=== PATIENT | female | born 1955 | race African-American/Black ===

== ENCOUNTER 2016-07-25 02:29 | Inpatient (IN) | payer OTHER ==
--- NOTE | 2016-07-12 12:58 | History & Physical Pre-Op ---
General Information and [facility] MD Statement: I have seen and personally examined EMILE WILSON and documented this H&P. The patient is a 61 year old F who presented with a patient stated chief complaint of bilateral low back pain radiating to her right anterior thigh with numbness. Source of Information: patient, old records Exam Limitations: no limitations History of Present Illness: Emile is a 61-year-old female who is complaining of bilateral low back pain radiating to her right anterior thigh with associated numbness. The pain has been going on over the last 3 years or more and has been progressively worsening. She does admit to bilateral knee pain but no significant pain beyond her knee on the right side. She denies any significant left leg pain but has had occasional left leg buckling. Emile states that her symptoms are worse with walking and improved with sitting with classic symptoms of neurogenic claudication. She denies any groin pain. She does feel that she is easily fatigued. She does report a pain level of 5/10 in intensity. She has undergone epidural steroid injections and participated in physical therapy along with taking anti-inflammatory medications, all of which have given her minimal and temporary symptom relief. She denies any bowel or bladder changes. Emile was scheduled for surgery in January,, but the procedure was canceled due to GI symptoms. She was worked up by her case briefer and has gone through treatments which have cleared up her symptoms and have given her clearance for surgery in July. Her MRI scan does show severe spinal stenosis at L3-4 and L4-5 with spondylolisthesis and facet arthrosis, consistent with her symptoms. Given the fact that her pain has failed to respond to conservative measures and she has experienced progressively worsening symptoms, she wants nothing more to do with nonsurgical treatment and has been consented for a posterior lumbar decompression and fusion L3-S1 with instrumentation and iliac crest bone grafting on 07/25/2016. Allergies/Medications Allergies: Coded Allergies: Penicillins (Intermediate, hives 01/13/16) chlorhexidine (From HIBICLENS) (RASH 07/22/16) Home Med list [ASACOL] 400 MG 4 TAB PO BID COLITIS (Reported) Enalapril Maleate 20 MG TABLET 1 TAB PO DAILY BP (Reported) [JANUMET] 100 MG PO D DIABETES (Reported) Prochlorperazine Maleate 5 MG TABLET 1 TAB PO PRN NAUSEA- MOTION SICKNESS ( Reported) Simvastatin (Zocor*) 20 MG TABLET 1 TAB PO QPM CHOLESTEROL (Reported) Compliance With Home Meds: GOOD Past History Medical History Neurological: NONE EENT: NONE Cardiovascular: hypertension, hyperlipidemia Respiratory: NONE Gastrointestinal: colitis, irritable bowel syndrome, ulcerative colitis Hepatic: NONE Renal: NONE Musculoskeletal: chronic back pain, disk herniation, degen joint disease, osteoarthritis (right hip and bilateral knees), sciatica, spinal stenosis Psychiatric: chronic pain disorder Endocrine: diabetes, obesity Blood Disorders: NONE Cancer(s): NONE 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 MOTHER (IDDM). Psychosocial History Where Do You Live? 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 Medication List Current Psychiatric Med(s): Enalapril 20mg daily Zocor 20mg daily Asacol 400mg 4 tabs in the am and 4 tabs in the pm Januvia 100mg daily Exam & Diagnostic Data Physical Exam: Height: 5'2" Weight: 260 lbs. Physical Exam General Appearance Alert, Oriented X3, Cooperative, No Acute Distress Skin No Rashes, No Breakdown, No Significant Lesion HEENT Atraumatic, PERRLA, EOMI, Mucous Membr. moist/pink Neck Supple, No JVD, No thryomegaly, +2 Carotid Pulse wo Bruit Lymphatic Cervical nl Cardiovascular Regular Rate, Normal S1, Normal S2, No Murmurs Lungs Clear to Auscultation, Normal Air Movement Abdomen Normal Bowel Sounds, Soft, No Tenderness, No Hepatospenomegaly, No Masses, GLOBOID Neurological Normal Tone, Sensation Intact, +4/5 RIGHT QUAD STRENGTH, DIFFUSELY DIMINISHED TAISHA. LOWER EXTREMITY REFLEXES, - SLR TAISHA. Extremities No Clubbing, No Cyanosis, No Edema, Normal Pulses Vascular Normal Pulses, Pulses Symmetrical Assessment/Plan Assessment/Plan: Assessment: Severe spinal stenosis, spondylolisthesis, and facet arthrosis at L3 -4 and L4-5. Plan: Emile is scheduled for a posterior lumbar decompression and fusion L3- S1 with instrumentation and iliac crest bone grafting on 07/25/2016. We discussed the procedure in full detail as well as the pre-and postoperative course, follow -up care, and anticipated recovery. We also discussed the discharge instructions. We discussed the risks, alternatives, and benefits. The risks did not exclude , paralysis, infection, bleeding, continued pain, failure of the surgery, need for future surgery, DVT, vascular injury, CSF leak, etc., and given these risks, she still wishes to proceed. We discussed the fact that there is no guarantee for the success or future success of the surgery but that 100% attempt will be made for full recovery. She is scheduled to follow-up with her case briefer and primary care physician to obtain preoperative clearance. She's been advised to continue her Asacol up until and following surgery. Any changes in this patient's plan is based on this patient's outpatient clinical presentation. As Ranked By This Provider Problem List: 1. Non-insulin dependent type 2 diabetes mellitus 2. Hypertension 3. Obesity 4. Hypercholesterolemia Attending MD Review Statement Attending Statement Attending MD Statement: examined this patient, discuss w/resident/PA/HOME CARE PHYSICAL THERAPIST, agreed w/resident/PA/HOME CARE PHYSICAL THERAPIST, reviewed images
[~2016-07-25] VITALS: Ht 157.5 cm; Wt 124.7 kg
[~2016-07-25 02:29] MED LIST: ASACOL PO; ENALAPRIL MALEA20 M1 PO; JANUMET 50-1,01 EACH PO; JANUMET PO; PROCHLORPERAZINE5 M2 PO; ZOCOR20 M1 PO
[2016-07-25 09:40] LABS: ABSOLUTE BASOPHIL COUNT 0 /CUMM (0.0-0.2); ABSOLUTE EOSINOPHIL COUNT 0 /CUMM (0.0-0.7); ABSOLUTE GRANULOCYTE CT 4.9 /CUMM (1.4-6.5); ABSOLUTE LYMPH COUNT 1.2 /CUMM (1.2-3.4); ABSOLUTE MONOCYTE COUNT 0.5 /CUMM (0.10-0.60); BASOPHIL % 0.4 % (0.0-2.0); EOSINOPHIL % 0.6 % (0-5); GRANULOCYTE % 73.2 % (42.2-75.2); HEMATOCRIT 31.7 % (37-47); MEAN CORPUSCULAR HGB CONC 32.1 G/DL (33.0-37.0); MEAN PLATELET VOLUME 8.4 FL (7.4-10.4); PLATELET COUNT 227 /CUMM (130-400); RBC DISTRIBUTION WIDTH 15.4 % (11.5-14.5); RED BLOOD CELL CT 3.92 /CUMM (4.20-5.40); WHITE BLOOD CELL COUNT 6.7 /CUMM (4.8-10.8)
--- NOTE | 2016-07-25 14:16 | Operative Report ---
Operative/Inv Procedure Report Surgery Date: 07/25/16 Name of Procedure: Lumbosacral laminectomies L3 4 4 5 and 51 instrumented pedicle screw fusion L3 4 5 and S1. Neuro lysis L5 nerves bilaterally. Lateral intertransverse process fusion with local facet bone L3 to S1. Use of fluoroscopy. Pre-Operative Diagnosis: Spinal stenosis and spondylolisthesis, L3 4 L4 5 L5-S1 Post-Operative Diagnosis: Same Estimated Blood Loss: 900 Surgeon/Pta: AJAY ACEVEDO,Mary CARDOZA Anesthesia: general endotracheal tube Monitors: Neurological Operative/Procedure Note Note: After adequate general anesthesia was achieved patient log rolled in the prone position. The back was sterilely prepped and draped in the midline and carried down bilaterally over the dorsal elements. The deep retractors were placed. There is severe hypertrophy of the facet joints worse at L4 5 but severe at L3 4 and L5-S1. A large quantity of bone graft was able to be harvested from the enlarged facet joints allowing avoidance of an iliac crest graft. The high- speed bur was then used to create laminectomies and curettes and Kerrisons were used to remove hypertrophied bone and soft tissue at L3 4 L4 5 and L5-S1. There was severe stenosis both medially and laterally at L4 5 and relatively severe stenosis at L3 4 there was foraminal stenosis at L5-S1. The nerve roots were again tension at the L45 level involving the L5 nerve roots and a neuro lysis was performed bilaterally corticotomies were created and the pedicles from L3 to S1 bilaterally doing tapping and probing the ball tip probe was used to identify intracortical position excellent purchase was achieved at all 8 screws from L3 to S1 bilaterally the facet joints were decorticated with the pencil point bur was at all 3 levels. Were contoured and placed within the pedicle screw RECEPTACLE and torqued tightened. Bone graft was laid laterally and over the facet joints. The screws were all checked using the neuro monitoring system and found to be appropriate. The construct was checked in AP and lateral plane and fluoroscopy was used throughout the placement of hardware all levels. After packing of the bone left lateral intertransverse process region from L3 to S1 was irrigated Gelfoam was laid over the laminotomy sites of L3 4 L4 5 and L5-S1 and the wound was closed with absorbable suture and the lumbodorsal fascia and subcutaneous tissue and the skin was closed with reji. The patient was taken the recovery room
[2016-07-25 15:54] LABS: ABSOLUTE BASOPHIL COUNT 0 /CUMM (0.0-0.2); ABSOLUTE EOSINOPHIL COUNT 0 /CUMM (0.0-0.7); ABSOLUTE GRANULOCYTE CT 12.2 /CUMM (1.4-6.5); ABSOLUTE LYMPH COUNT 2.1 /CUMM (1.2-3.4); ABSOLUTE MONOCYTE COUNT 1.5 /CUMM (0.10-0.60); BASOPHIL % 0.2 % (0.0-2.0); EOSINOPHIL % 0.3 % (0-5); GRANULOCYTE % 77.1 % (42.2-75.2); HEMATOCRIT 35.7 % (37-47); MEAN CORPUSCULAR HGB CONC 31.9 G/DL (33.0-37.0); MEAN CORPUSCULAR VOLUME 81.6 FL (81.0-99.0); PLATELET COUNT 217 /CUMM (130-400); RBC DISTRIBUTION WIDTH 15.6 % (11.5-14.5); RED BLOOD CELL CT 4.37 /CUMM (4.20-5.40)
[2016-07-25 16:03] LABS: WHITE BLOOD CELL COUNT 15.9 /CUMM (4.8-10.8)
--- NOTE | 2016-07-25 16:07 | Patient Discharge Instructions ---
Acute Coronary Syndrome Inclusion Criteria At DC or during hospital stay patient has or had the following: ACS DIAGNOSIS No Discharge Core Measures Meds if any: Prescribed or Continued at Discharge Meds if any: NOT Prescribed or Continued at Discharge Congestive Heart Failure Inclusion Criteria At DC or during hospital stay patient has or had the following: CHF DIAGNOSIS No Discharge Core Measures Meds if any: Prescribed or Continued at Discharge Meds if any: NOT Prescribed or Continued at Discharge Cerebrovascular accident Inclusion Criteria At DC or during hospital stay patient has or had the following: CVA/TIA Diagnosis No Discharge Core Measures Meds if any: Prescribed or Continued at Discharge Meds if any: NOT Prescribed or Continued at Discharge Venous thromboembolism Inclusion Criteria VTE Diagnosis No VTE Type NONE VTE Confirmed by (Test) NONE Discharge Core Measures - Per Current guidelines, there needs to be overlap - treatment for the first 5 days of Warfarin therapy. - If discharged on Warfarin prior to 5 days of - overlap therapy, the patient will need to be - assessed for post discharge needs including - *Post discharge parental anticoagulation - *Warfarin and/or parental anticoagulation education - *Follow up date to check INR post discharge At least 5 days overlap therapy as Inpatient No Meds if any: Prescribed or Continued at Discharge Note: Overlap Therapy is Warfarin and Anticoagulant Meds if any: NOT Prescribed or Continued at Discharge
[2016-07-25] MEDS ORDERED: PERCOCET 5-3251 EACH PO (16:13)
--- NOTE | 2016-07-25 16:28 | RADIOLOGY REPORT ---
EXAMINATION: XR LUMBOSACRAL SPINE CLINICAL INFORMATION: L3-S1 fixation in OR COMPARISON: None TECHNIQUE: Fluoroscopic assistance was provided in the operating room to Dr. Gomez. 3 images were saved. Total fluoroscopic time was 2.2 minutes. FINDINGS: Images demonstrate a lumbar spine and AP lateral projections. On the final image there are pedicle screws present at 4 contiguous levels in the spine, although precise levels are difficult to determine on this single view. IMPRESSION: Intraoperative fluoroscopic assistance for L3-S1 fixation.
--- NOTE | 2016-07-25 17:32 | Cons- Medical ---
GANESH BYERS MD 07/25/16 1729: General Information and HPI Consulting Request Date of Consult: 07/25/16 Requested By: SHINE GOMEZ MD Reason for Consult: Medical Management of DM and HTN Source of Information: patient Exam Limitations: no limitations History of Present Illness: Consult was called by the orthopedic surgeon Dr. Gomez, to comanage this patient for her medical comorbidities including diabetes, hypertension and hyperlipidemia. She is a 61 YO f from [facility] with a PMH of HTN, hyperlipidemia, DM, obesity, chronic pain, recently diagnosed ulcerative colitis on Asachol, IBS, osteoarthritis and spinal stenosis at L3, L4 and L4, L5 with spondylolisthesis who presents with bilateral lower back pain radiating to the anterior thigh with numbness 3 years and getting progressively worse. Pain is worse with walking and better with sitting and she experiences buckling. She has gotten multiple epidural steroid injections as well as physical therapy with anti- inflammatory use without relief so she opted for surgical lumbar fusion of L3-S1 with instrumentation and iliac crest bone grafting. Status post surgery and patient is doing well she is pain-free at the moment following administration of pain medication. She had 900 mL blood loss during surgery and had a bag of PRBC transfused in PACU. She also had about 380mls+ of autologous blood transfusion intraoperatively per RN. Hemoglobin preop was 10.2/31.7 and postop 11.2/37.5. Her blood glucose preop was seen and postop was 132. She does not remember her last hemoglobin A1c but says he was done about 2 weeks prior to surgery. She follows with her primary care physician in [facility] Dr. Gonzales. FHx-Father:ASCDDMI; Mother:IDDM Medications include: Asacol 1600 mg twice a day Enalapril 20 mg daily Janumet 100 mg daily Compazine 5 mg tablet when necessary for nausea Zocor 20mg at night Allergies/Medications Allergies: Coded Allergies: Penicillins (Intermediate, hives 01/13/16) chlorhexidine (From HIBICLENS) (RASH 07/22/16) Home Med List: [ASACOL] 400 MG 4 TAB PO BID COLITIS (Reported) Enalapril Maleate 20 MG TABLET 1 TAB PO DAILY BP (Reported) [JANUMET] 100 MG PO D DIABETES (Reported) Oxycodone HCl/Acetaminophen (Percocet 5-325 MG Tablet) 5 MG-325 MG TABLET 2 TAB PO Q4P PRN PAIN SCALE 6-8 1-2 TABS PO Q 4-6 HRS PRN PAIN Prochlorperazine Maleate 5 MG TABLET 1 TAB PO PRN NAUSEA- MOTION SICKNESS ( Reported) Simvastatin (Zocor*) 20 MG TABLET 1 TAB PO QPM CHOLESTEROL (Reported) Current Medications: Current Medications Sig/Sera Start time Last Medication Dose Route Stop Time Status Admin Acetaminophen 650 MG Q4P PRN 07/25 1545 AC PO Acetaminophen 1,000 MG .STK-MED ONE 07/25 07 DC IV 07/25 07 Atorvastatin Calcium 10 MG 1700 07/25 1700 AC PO Bisacodyl 10 MG DAILY NEEDED PRN 07/25 1545 AC SD Clindamycin 600 MG IQ8 07/25 1600 AC Dextrose/Water 50 ML IV 07/26 1629 Clindamycin 600 MG ONCE 07/25 0000 NR Dextrose/Water 50 ML IV 07/25 2359 Dexamethasone 8 MG .STK-MED ONE 07/25 700 DC IM 07/25 07 Docusate Sodium 100 MG TID 07/25 1600 AC PO Fentanyl Citrate 250 MCG .STK-MED ONE 07/25 0659 DC IM 07/25 07 Hydromorphone HCl 2 MG .STK-MED ONE 07/25 700 DC IM 07/25 07 Insulin Aspart 0 AT BEDTIME 07/25 2200 AC SC Insulin Aspart 0 TIDAC 07/25 1700 AC SC Lactated Ringer's 1,000 ML Q10H 07/25 1600 AC IV Lisinopril 20 MG DAILY 07/26 1000 AC PO Magnesium Hydroxide 30 ML AT BEDTIME PRN 07/25 1600 AC PO Midazolam HCl 2 MG .STK-MED ONE 07/25 07 DC IM 07/25 07 Morphine Sulfate 1 MG Q3P PRN 07/25 1545 AC IV Multivitamins 1 TAB DAILY 07/26 1000 AC PO Ondansetron HCl 4 MG Q6P PRN 07/25 1545 AC IV Ondansetron HCl 4 MG .STK-MED ONE 07/25 07 DC IM 07/25 07 Oxycodone/ 1 TAB Q4P PRN 07/25 1545 AC Acetaminophen PO Oxycodone/ 2 TAB Q4P PRN 07/25 1545 AC Acetaminophen PO Remifentanil 2 MG .STK-MED ONE 07/25 0700 DC IV 07/25 0701 Sitagliptin Phosphate 100 MG DAILY 07/26 1000 AC PO Trimethobenzamide HCl 200 MG Q6P PRN 07/25 1545 AC IM Review of Systems Review of Systems Constitutional: Denies: no symptoms. Cardiovascular: Denies: chest pain, palpitations. Respiratory: Denies: cough, short of breath. GI: Denies: constipation, diarrhea, nausea, bloody stool, vomiting. Genitourinary: Denies: dysuria. Musculoskeletal: Denies: joint pain. 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 MOTHER (IDDM). Psychosocial History Where Do You Live? Home Primary Language: Greek Smoking Status: Never Smoked ETOH Use: denies use Illicit Drug Use: denies illicit drug use Other Social History: with 1 son Functional Ability ADLs Independent: dressing, eating, toileting, bathing. Ambulation: independent IADLs Independent: shopping, housework, finances, food prep, telephone, transportation , medication admin. 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 Exam & Diagnostic Data Last 24 Hrs of Vital Signs/I&O Vital Signs Date Time Temp Pulse Resp B/P B/P Pulse O2 O2 Flow FiO2 Mean Ox Delivery Rate 07/27 0610 99.0 94 18 138/56 95 Room Air 07/26 2159 99.2 99 18 140/60 95 Room Air 07/26 1425 98.6 80 20 102/60 97 07/26 0859 76 142/74 07/26 0826 Room Air Room Air 07/26 0825 99.5 76 20 142/74 98 Intake & Output 07/27 0800 06/07 0000 07/26 1600 Intake Total 318 237 4213 Output Total 400 800 850 Balance -160 140 175 Intake, IV 225 Intake, Oral 240 940 800 Output, Urine 400 800 850 Physical Exam General Appearance: obese Eyes: Bilateral: PERRL, EOMI, other (proptosis). Respiratory: chest non-tender, lungs clear Cardiovascular: regular rate/rhythm Peripheral Pulses: 4+ radial (R), 4+ radial (L), 4+ tibialis posterior (R), 4+ tibialis posterior ( L), 4+ dorsalis pedis (R), 4+ dorsalis pedis (L) Gastrointestinal: normal bowel sounds, soft, non-tender Extremities: normal inspection, no edema Skin: intact, normal color Last 24 Hrs of Labs/Robin: Laboratory Tests 07/25/16 1540: CBC w Diff NO MAN DIFF REQ, RBC 4.37, MCV 81.6, MCH 26.0 L, RDW 15.6 H, MPV 8.0, Gran % 77.1 H, Lymphocytes % 13.0 L, Monocytes % 9.4 H, Eosinophils % 0.3, Basophils % 0.2, Absolute Granulocytes 12.2 H, Absolute Lymphocytes 2.1, Absolute Monocytes 1.5 H, Absolute Eosinophils 0, Absolute Basophils 0, PUBS MCHC 31.9 L 07/25/16 0912: CBC w Diff NO MAN DIFF REQ, RBC 3.92 L, MCV 81.0, MCH 26.0 L, RDW 15.4 H, MPV 8.4, Gran % 73.2, Lymphocytes % 18.3 L, Monocytes % 7.5, Eosinophils % 0.6, Basophils % 0.4, Absolute Granulocytes 4.9, Absolute Lymphocytes 1.2, Absolute Monocytes 0.5, Absolute Eosinophils 0, Absolute Basophils 0, PUBS MCHC 32.1 L Assessment/Plan Assessment/Plan 61 YO f with a PMH of HTN, hyperlipidemia, DM, obesity, chronic pain, ulcerative colitis, IBS, osteoarthritis and spinal stenosis at L3, L4 and L4, L5 with spondylolisthesis who presents with bilateral lower back pain radiating to the anterior thigh with numbness 3 years. Consult was called by the orthopedic surgeon Dr. Shnie Gomez, to comanage this patient for her medical comorbidities including diabetes, hypertension and hyperlipidemia etc. Assessment Status post lumbar fusion surgery Type 2 diabetes Elevated WBC count post op-could be reactive Hyperlipidemia HTN Ulcerative colitis Obesity Plan Hold Janumet for now; resume on discharge Start subcutaneous insulin sliding scale-low dose Monitor sugars 3 times a day before meals and at bedtime Resume home dose of enalapril Resume home dose of simvastatin Resume home dose of Asacol Pain control per orthopedic team Bowel regimen as needed Compazine/Zofran when necessary for nausea Repeat CBC in am to evaluate WBC count Incentive Spirometry Check EKG, HbA1C IVF hydration Diabetic diet DVT ppx-Alps Vitals Q shift PT eval for early ambulation Remove Bravo within 24 hrs post-op to reduce risk of infection Other management per orthopedic team We will follow along with you Problem List: 1. Fusion of lumbar spine 2. Non-insulin dependent type 2 diabetes mellitus 3. Hypertension 4. Obesity 5. Hypercholesterolemia Copies To: AJAY ACEVEDO,SHINE Consult Acknowledgment - Thank you for your consult request. GARRY ACEVEDO, [facility] 07/25/161917: Assessment/Plan Consult Acknowledgment - Thank you for your consult request. Attending MD Review Statement Attending Statement Attending MD Statement: examined this patient, discuss w/resident/PA/CARRIER WASHER, agreed w/resident/PA/CARRIER WASHER Attending Assessment/Plan: Agree with above resident note. Briefly, 61 yo morbidly obese F with h/o HTN, T2DM, HLD, recent diagnosis of Crohn's colitis, chronic back pain 2/2 severe spinal stenosis, spondylolisthesis and facet arthrosis L3-4-5-S1, who is s/p lumbosacral laminectomy today by Dr. Gomez. Medical consult being sought for co-management of medical issues. Currently she c/o surgical site pain 7/10 and lightheadedness while trying to ambulate to the bathroom. She denies chest pain, dyspnea or palpitations. Of note, patient was recently diagnosed with Crohn's colitis (Mar 2016) with multiple colonic ulcerations rectosigmoid to cecum on colonoscopy. Biopsy was suggestive of IBD, so she was placed on a 2 week course of Flagyl, prednisone taper and Asacol. She had a repeat colonoscopy (June 2016) which showed resolution of the ulcerations, normal mucosa. She continues to be on Asacol, per her GI doctor, when she returns to [facility], they plan to discontinue the Asacol as this does not seem to be Crohn's instead a manifestion of bowel infection ? infectious colitis. Last normal BM was this morning. VSS. Unremarkable exam, surgical site C/D/I. Labs: Leukocytosis 15.9, H/H 10.2/ 31.7 --> 11.4/35.7, glucose 101, LFTs normal. EKG: SR, Qtc 443. Last A1c is 7.11. 1. Spinal stenosis s/p lumbosacral laminectomy. Pain management per primary team. Please provide incentive spirometry to prevent atelectasis. PT eval. IV fluids, encourage PO intake. 2. Essential hypertension. Borderline BP today 100/50. Resume enalapril from AM. 3. T2DM on Janumet. Accucheks TIDAC, hold janumet while inpatient resume on discharge. Novolog SS for now. 4. Leukocytosis likely reactive. Patient does not have any focal symptoms. 5. Crohn's colitis. Resume asacol. Patient to follow up with her GI doctor on return to [facility]. DVT ppx Alps. Full code.
--- NOTE | 2016-07-25 18:03 | PN- Orthopedic ---
Subjective Subjective: post op check Awake, alert No specific complaints Denies pain or nausea Objective Vital Signs and I&Os VSS, afebrile Physical Exam: Bravo: 350cc General: alert and oriented times three Chest: clear anteriorly bilaterally, RRR Abd: soft Ext: warm, no edema, no calf tenderness Neuro: positive sensate all 4 ext, 5/5 VICKY all 4 ext Assessment/Plan Assessment/Plan 61 yo female s/p lum keane pain management diabetic diet insulin sliding scale perioperatively clindamycin - 4 doses post op Core Measures/Miscellaneous Venous Thromboembolism VTE Risk Factors: Age > 40, Surgery VTE Contraindications: No Contraindications VTE Diagnosis: No Beta Ana Is Beta Ana a Home Med? No Antibiotics Is Patient on Antibiotics? Yes If Yes: prophylaxis
[2016-07-25 20:17] VITALS: BP 110/80; BP 98/46
[2016-07-25 22:26] VITALS: BP 100/50
[2016-07-26 08:25] VITALS: BP 142/74
[2016-07-26 08:37] LABS: ABSOLUTE BASOPHIL COUNT 0 /CUMM (0.0-0.2); ABSOLUTE EOSINOPHIL COUNT 0 /CUMM (0.0-0.7); ABSOLUTE LYMPH COUNT 0.8 /CUMM (1.2-3.4); ABSOLUTE MONOCYTE COUNT 1.1 /CUMM (0.10-0.60); BASOPHIL % 0 % (0.0-2.0); EOSINOPHIL % 0 % (0-5); GRANULOCYTE % 85.6 % (42.2-75.2); HEMATOCRIT 33.2 % (37-47); MEAN CORPUSCULAR HGB 25.8 PG (27.0-31.0); MEAN CORPUSCULAR HGB CONC 32.1 G/DL (33.0-37.0); MEAN CORPUSCULAR VOLUME 80.3 FL (81.0-99.0); MEAN PLATELET VOLUME 9.3 FL (7.4-10.4); PLATELET COUNT 151 /CUMM (130-400); RBC DISTRIBUTION WIDTH 15.4 % (11.5-14.5); RED BLOOD CELL CT 4.13 /CUMM (4.20-5.40); WHITE BLOOD CELL COUNT 12.8 /CUMM (4.8-10.8)
--- NOTE | 2016-07-26 09:40 | PN- Medicine Consult ---
[facility] 07/26/16 0939: Assessment/Plan Assessment/Plan Assessment: 61 YO f with a PMH of HTN, hyperlipidemia, DM, obesity, chronic pain, ulcerative colitis, IBS, osteoarthritis and spinal stenosis at L3, L4 and L4, L5 with spondylolisthesis who presents with bilateral lower back pain radiating to the anterior thigh with numbness 3 years. Consult was called by the orthopedic surgeon Dr. Shine Gomez, to comanage this patient for her medical comorbidities including diabetes, hypertension and hyperlipidemia etc. Assessment Spinal stenosis status post Laminectomy POD1 Type 2 diabetes Elevated WBC count post op-could be reactive Hyperlipidemia HTN Crhons colitis Obesity Plan: Plan Continue to hold Janumet for now; resume on discharge Continue SC insulin sliding scale-low dose Monitor sugars 3 times a day before meals and at bedtime Continue enalapril, simvastatin and Asacol Pain control per orthopedic team Bowel regimen as needed Compazine/Zofran when necessary for nausea Incentive Spirometry Diabetic diet DVT ppx-Alps Vitals Q shift PT eval for early ambulation Other management per orthopedic team We will follow along with you Problem List: 1. Fusion of lumbar spine 2. Hypertension 3. Non-insulin dependent type 2 diabetes mellitus 4. Hypercholesterolemia Subjective Subjective: Patient seen and examined, sitting in the chair, she report back pain, but it's improving She denies chest pain, SOB, no other symptoms No bowel movement yet, good UOP Vitals stable Review of Systems Constitutional: Reports: no symptoms. EENTM: Reports: no symptoms. Cardiovascular: Reports: no symptoms. Respiratory: Reports: no symptoms. Gastrointestinal: Reports: no symptoms. Genitourinary: Reports: no symptoms. Musculoskeletal: Reports: back pain. Skin: Reports: no symptoms. Objective Last 24 Hrs of Vital Signs/I&O Vital Signs Date Time Temp Pulse Resp B/P B/P Pulse O2 O2 Flow FiO2 Mean Ox Delivery Rate 07/27 0759 76 142/74 07/26 08 Room Air Room Air 07/26 824 99.5 76 20 142/74 98 07/26 0000 100 Nasal 2.0L Cannula 07/25 2225 98.5 66 20 100/50 100 Nasal 2.0L Cannula 07/25 2016 98.5 61 16 110/80 94 Nasal Cannula 07/25 1850 Nasal 2.0L Cannula Intake & Output 07/26 1600 06/06 0800 07/26 0000 Intake Total 1380 360 Output Total 1800 800 Balance -420 -440 Intake, IV 900 120 Intake, Oral 480 240 Number 0 0 Bowel Movements Output, Urine 1800 800 Patient 275 lb Weight Physical Exam General Appearance: well developed/nourished, alert, awake, moderate distress Head: atraumatic, normal appearance Cardiovascular: regular rate/rhythm Respiratory: normal breath sounds Abdomen: normal bowel sounds, soft, non-tender Extremities: no edema Current Medications: Current Medications Sig/Sera Start time Last Medication Dose Route Stop Time Status Admin Acetaminophen 1,000 MG Q6H 07/26 1100 AC 07/26 N/A 1 UNIT IV 07/27 0514 1053 Acetaminophen 650 MG Q4P PRN 07/25 1545 DC PO Atorvastatin Calcium 10 MG 1700 07/25 1700 AC PO Bisacodyl 10 MG DAILY NEEDED PRN 07/25 1545 AC NJ Clindamycin 600 MG IQ8 07/25 1600 AC 07/26 Dextrose/Water 50 ML IV 07/26 1629 0753 Clindamycin 600 MG ONCE 07/25 0000 DC Dextrose/Water 50 ML IV 07/25 2359 Docusate Sodium 100 MG TID 07/25 1600 AC 07/26 PO 0858 Hydromorphone HCl 2 MG .STK-MED ONE 07/25 1641 DC IM 07/25 1642 Hydromorphone HCl 2 MG .STK-MED ONE 07/25 1500 DC IM 07/25 1501 Insulin Aspart 0 AT BEDTIME 07/25 2200 AC SC Insulin Aspart 0 TIDAC 07/25 1700 AC 07/26 SC 1204 Lactated Ringer's 1,000 ML Q10H 07/25 1600 AC 07/26 IV 0523 Lisinopril 20 MG DAILY 07/26 1000 AC 07/26 PO 0859 Magnesium Hydroxide 30 ML AT BEDTIME PRN 07/25 1600 AC PO Meperidine HCl 50 MG .STK-MED ONE 07/25 1459 DC IM 07/25 1500 Mesalamine 1,600 MG BID 07/25 2200 AC 07/26 PO 0858 Morphine Sulfate 2 MG Q2-3 HRS NEEDED.. 07/26 1100 AC IV Morphine Sulfate 1 MG Q3P PRN 07/25 1545 DC 07/26 IV 0546 Multivitamins 1 TAB DAILY 07/26 1000 AC 07/26 PO 0859 Ondansetron HCl 4 MG Q6P PRN 07/25 1545 AC 07/25 IV 1941 Oxycodone HCl 5 MG Q4-6 PRN PRN 07/26 1100 AC PO Oxycodone HCl 10 MG Q4-6 PRN PRN 07/26 1100 AC PO Oxycodone HCl 15 MG Q4-6 PRN PRN 07/26 1100 AC PO Oxycodone/ 1 TAB Q4P PRN 07/25 1545 DC Acetaminophen PO Oxycodone/ 2 TAB Q4P PRN 07/25 1545 DC 07/26 Acetaminophen PO 0859 Sitagliptin Phosphate 100 MG DAILY 07/26 1000 CAN PO Trimethobenzamide HCl 200 MG Q6P PRN 07/25 1545 AC IM Results Last 24 Hrs Lab/Robni Results: Laboratory Tests 07/26/16 0721: Hemoglobin A1c 6.8 H, CBC w Diff NO MAN DIFF REQ, RBC 4.13 L, MCV 80.3 L, MCH 25.8 L, RDW 15.4 H, MPV 9.3, Gran % 85.6 H, Lymphocytes % 6.1 L, Monocytes % 8.3, Eosinophils % 0, Basophils % 0 L, Absolute Granulocytes 11.0 H, Absolute Lymphocytes 0.8 L, Absolute Monocytes 1.1 H, Absolute Eosinophils 0, Absolute Basophils 0, PUBS MCHC 32.1 L 07/25/16 1540: CBC w Diff NO MAN DIFF REQ, RBC 4.37, MCV 81.6, MCH 26.0 L, RDW 15.6 H, MPV 8.0, Gran % 77.1 H, Lymphocytes % 13.0 L, Monocytes % 9.4 H, Eosinophils % 0.3, Basophils % 0.2, Absolute Granulocytes 12.2 H, Absolute Lymphocytes 2.1, Absolute Monocytes 1.5 H, Absolute Eosinophils 0, Absolute Basophils 0, PUBS MCHC 31.9 L TOMER STEELE 07/26/16 0953: Attending MD Review Statement Attending Sign Off Attending Cosign Statement: I have: examined this patient, reviewed [facility] EMR data, personally reviewd images, discussd w/resident/PA/DIRECTOR GEOPHYSICAL [employer]ORATORY, discussed mgmt plan w/calvin, discussed mgmt plan w/CM, discussed mgmt plan w/pt, agreed w/resident/PA/DIRECTOR [employer]OP[employer]ORAT[employer], amended to note. Other Findings: ASSESSMENT 1. Spinal stenosis s/o lumbosacral laminectomy. 2. Essential hypertension. 3. T2DM on Janumet. Accucheks TIDAC, hold janumet while inpatient resume on discharge. Novolog SS for now. 4. Leukocytosis likely reactive. 5. Crohn's colitis stable no acute issues PLAN Pain management per primary team. continue incentive spirometry to prevent atelectasis. PT eval. d/c IV fluids, encouraged PO intake. BP 142/72. Resumed bp meds Resumed asacol. f/u GI as o/p DVT ppx Alps. Full code. d/c planning as per surgical team.
[2016-07-26 14:25] VITALS: BP 102/60
--- NOTE | 2016-07-26 14:45 | Surg Short-stay <48hrs Dis Sum ---
Visit Information Visit Dates Admission Date: 07/25/16 Discharge Date: 07/28/16 Surgical Short Stay DC Summary Admission Diagnosis: Spinal stenosis and spondylolisthesis, L3-4 L4-5 L5-S1 Final Diagnosis: same, s/p Lumbosacral laminectomies L3 4 4 5 and 51 instrumented pedicle screw fusion L3 4 5 and S1. Neuro lysis L5 nerves bilaterally. Lateral intertransverse process fusion with local facet bone L3 to S1. Use of fluoroscopy. Procedure(s): Surgery Date: 07/25/16 Name of Procedure: Lumbosacral laminectomies L3 4 4 5 and 51 instrumented pedicle screw fusion L3 4 5 and S1. Neuro lysis L5 nerves bilaterally. Lateral intertransverse process fusion with local facet bone L3 to S1. Use of fluoroscopy. Summary/Significant Findings: Electively scheduled lumbosacral laminectomies L3-4, L4-5, L5-S1 with instrumented fusion by on 07/25/16 for spinal stenosis and spondylolisthesis. Post-op pain control transitioned from iv to oral medications prior to her discharge to home. Condition at Discharge: stable Discharge Disposition: home or self care Discharge instructions provided to patient/family: Yes Post discharge follow-up plan: follow up with as instructed
--- NOTE | 2016-07-26 15:56 | RADIOLOGY REPORT ---
EXAMINATION: XR LUMBAR SPINE CLINICAL INFORMATION: Postoperative lumbar fusion. COMPARISON: Intraoperative fluoroscopic images of lumbar spine, 07/25/2016. TECHNIQUE: Single AP view of the lumbar spine was obtained. FINDINGS: Skin reji project over the midline of the back in this patient who is status post L3-S1 posterior spinal fusion. The posterior fusion rods and transpedicular screws appear intact, but are suboptimally evaluated on this single projection. The lumbar vertebral alignment is anatomic in the coronal plane. IMPRESSION: Status post L3-S1 spinal fusion.
[2016-07-26 21:59] VITALS: BP 140/60
[2016-07-27 07:10] VITALS: BP 138/56
--- NOTE | 2016-07-27 08:22 | PN- Medicine Consult ---
[facility] 07/27/16 0809: Assessment/Plan Assessment/Plan Assessment: 61 YO f with a PMH of HTN, hyperlipidemia, DM, obesity, chronic pain, ulcerative colitis, IBS, osteoarthritis and spinal stenosis at L3, L4 and L4, L5 with spondylolisthesis who presents with bilateral lower back pain radiating to the anterior thigh with numbness 3 years. Consult was called by the orthopedic surgeon Dr. Shine Gomez, to comanage this patient for her medical comorbidities including diabetes, hypertension and hyperlipidemia etc. Assessment * Spinal stenosis status post lumbosacral laminectomy POD2 * Type 2 diabetes mellitus * Elevated WBC count post op-could be reactive * Hyperlipidemia * HTN * Crohns colitis, stable * Obesity Plan: * Last fingersticks 143, 143, 162. Continue NovoLog sliding scale. Resume Janumet on discharge. * Monitor sugars 3 times a day before meals and at bedtime * Continue enalapril, simvastatin and Asacol. Outpatient GI follow-up for Crohn 's. * Pain control per primary team * Bowel regimen as needed * Compazine/Zofran when necessary for nausea * Incentive Spirometry * Diabetic diet * DVT ppx-Alps * PT eval for early ambulation * DC planning per primary team Problem List: 1. Hypertension 2. Obesity 3. Non-insulin dependent type 2 diabetes mellitus 4. Spinal stenosis Subjective Subjective: Patient seen and examined, offers no complaints. Had good sleep overnight. Denies any shortness of breath, chest pain, palpitations, nausea, vomiting, abdominal pain. Vital stable. Blood sugars well controlled. Review of Systems Constitutional: Reports: no symptoms. EENTM: Reports: no symptoms. Cardiovascular: Reports: no symptoms. Respiratory: Reports: no symptoms. Gastrointestinal: Reports: no symptoms. Genitourinary: Reports: no symptoms. Musculoskeletal: Reports: back pain. Skin: Reports: no symptoms. Objective Last 24 Hrs of Vital Signs/I&O Vital Signs Date Time Temp Pulse Resp B/P B/P Pulse O2 O2 Flow FiO2 Mean Ox Delivery Rate 07/27 0710 99.0 94 18 138/56 95 Room Air 07/26 2159 99.2 99 18 140/60 95 Room Air 07/26 1425 98.6 80 20 102/60 97 07/26 0859 76 142/74 07/26 0826 Room Air Room Air 07/26 0825 99.5 76 20 142/74 98 Intake & Output 07/27 1600 07/27 0800 06 0000 Intake Total 240 940 Output Total 400 800 Balance -160 140 Intake, Oral 240 940 Output, Urine 400 800 Physical Exam General Appearance: well developed/nourished, obese Head: atraumatic, normal appearance Ears, Nose, Throat: normal pharynx, normal ENT inspection Neck: normal inspection, supple Cardiovascular: regular rate/rhythm Respiratory: normal breath sounds Abdomen: normal bowel sounds, soft, non-tender Extremities: normal inspection, no edema Current Medications: Current Medications Sig/Sera Start time Last Medication Dose Route Stop Time Status Admin Acetaminophen 1,000 MG Q6H 07/26 1100 DC 07/27 N/A 1 UNIT IV 07/27 0514 0518 Acetaminophen 650 MG Q4P PRN 07/25 1545 DC PO Atorvastatin Calcium 10 MG 1700 07/25 1700 AC 07/26 PO 1632 Bisacodyl 10 MG DAILY NEEDED PRN 07/25 1545 AC IL Clindamycin 600 MG IQ8 07/25 1600 DC 07/26 Dextrose/Water 50 ML IV 07/26 1629 1632 Docusate Sodium 100 MG TID 07/25 1600 AC 07/26 PO 2156 Insulin Aspart 0 AT BEDTIME 07/25 2200 AC SC Insulin Aspart 0 TIDAC 07/25 1700 AC 07/26 SC 1641 Lactated Ringer's 1,000 ML Q10H 07/25 1600 DC 07/26 IV 0523 Lisinopril 20 MG DAILY 07/26 1000 AC 07/26 PO 0859 Magnesium Hydroxide 30 ML AT BEDTIME PRN 07/25 1600 AC PO Mesalamine 1,600 MG BID 07/25 2200 AC 07/26 PO 2156 Morphine Sulfate 2 MG Q2-3 HRS NEEDED.. 07/26 1100 AC IV Morphine Sulfate 1 MG Q3P PRN 07/25 1545 DC 07/26 IV 0546 Multivitamins 1 TAB DAILY 07/26 1000 AC 07/26 PO 0859 Ondansetron HCl 4 MG Q6P PRN 07/25 1545 AC 07/25 IV 1941 Oxycodone HCl 5 MG Q4-6 PRN PRN 07/26 1100 AC PO Oxycodone HCl 10 MG Q4-6 PRN PRN 07/26 1100 AC PO Oxycodone HCl 15 MG Q4-6 PRN PRN 07/26 1100 AC 07/27 PO 0329 Oxycodone/ 1 TAB Q4P PRN 07/25 1545 DC Acetaminophen PO Oxycodone/ 2 TAB Q4P PRN 07/25 1545 DC 07/26 Acetaminophen PO 0859 Trimethobenzamide HCl 200 MG Q6P PRN 07/25 1545 AC IM Results Last 24 Hrs Lab/Robin Results: han STEELETOMER 07/27/16 0923: Attending MD Review Statement Attending Sign Off Attending Cosign Statement: I have: examined this patient, reviewed aval EMR data, personally reviewd images, discussd w/resident/PA/CAMERA MAKER, discussed mgmt plan w/calvin, discussed mgmt plan w/CM, discussed mgmt plan w/pt, agreed w/resident/PA/CAMERA MAKER, amended to note. Other Findings: ASSESSMENT 1. Spinal stenosis s/o lumbosacral laminectomy. 2. Essential hypertension. 3. T2DM on Janumet. Accucheks TIDAC, hold janumet while inpatient resume on discharge. Novolog SS for now. 4. Leukocytosis likely reactive. 5. Crohn's colitis stable no acute issues PLAN Pain management per primary team. continue incentive spirometry to prevent atelectasis. PT eval, encouraged PO intake. BP controlled Resumed asacol. f/u GI as o/p DVT ppx Alps. Full code. d/c planning as per surgical team. sign off.
--- NOTE | 2016-07-27 12:48 | PN- Orthopedic ---
Subjective Subjective: Patient c/o expected postop incisional pain. Less preop pain. Patient c/o feeling "wobbly" in legsd but no weakness. Ambulating with assistance. James. po. No N/V. +appetite. No fever/chills. Voiding without difficulty. + flatus. Review of Systems: Remarkable for the above complaints. Objective Vital Signs and I&Os Vital Signs Date Time Temp Pulse Resp B/P B/P Pulse O2 O2 Flow FiO2 Mean Ox Delivery Rate 07/27 0710 99.0 94 18 138/56 95 Room Air 07/26 2159 99.2 99 18 140/60 95 Room Air 07/26 1425 98.6 80 20 102/60 97 Intake & Output 07/27 1600 07/27 0800 07/27 0000 07/26 1600 07/26 0800 07/26 0000 Intake Total 800 459 5538 1380 360 Output Total 300 400 587 736 9264 800 Balance -300 -160 140 175 -420 -440 Intake, IV 225 900 120 Intake, Oral 240 940 800 480 240 Number 0 0 Bowel Movements Output, Urine 300 400 340 048 2807 800 Patient 275 lb Weight Physical Exam General Appearance: well developed/nourished, alert, awake, moderate distress Head: atraumatic, normal appearance Neck: normal inspection, supple Respiratory: normal breath sounds, no respiratory distress, lungs clear Cardiovascular: regular rate/rhythm Peripheral Pulses: 2+ tibialis posterior (R), 2+ tibialis posterior (L), 2+ dorsalis pedis (R), 2+ dorsalis pedis (L) Abdomen: normal bowel sounds, soft, non-tender, +globoid Back: Incison C/D/I. Dressings changed. No drainage or active bleeding. Extremities: normal inspection, normal capillary refill Neurologic/Psychiatric: no motor/sensory deficits, awake, alert, oriented x 3, Neurovascularly intact without any new or worsening gross motor or sensory loss. Skin: intact, normal color, warm/dry Assessment/Plan Assessment/Plan Assessment: s/p PLDF L3-S1 with Instr. and local bone. Plan: Continue Oxycodone. HLIV. Ambulate with PT. Possible D/C home later today or tomorrow. Do's and Don'ts explained. Disch. Instr. given. Ice prn pain. Problem List: 1. Non-insulin dependent type 2 diabetes mellitus 2. Hypertension 3. Obesity 4. Hypercholesterolemia 5. Fusion of lumbar spine 6. Spinal stenosis Core Measures/Miscellaneous Venous Thromboembolism VTE Risk Factors: Age > 40, Surgery VTE Contraindications: No Contraindications VTE Diagnosis: No Beta Ana Is Beta Ana a Home Med? No Antibiotics Is Patient on Antibiotics? Yes If Yes: prophylaxis Attending MD Review Statement Attending Statement Attending MD Statement: examined this patient, discuss w/resident/PA/FIELD ENUMERATOR, agreed w/resident/PA/FIELD ENUMERATOR
[2016-07-27 14:32] VITALS: BP 110/65
--- NOTE | 2016-07-27 17:00 | NUR ---
NURSING NOTE: PATIENT NOTED TO HAVE TEMPERATURE OF 101.5. SURGICAL PA NOTIFIED. NEW ORDER FOR TYLENOL GIVEN, WILL RE-CHECK AND KEEP EEY ON TEMPS THROUGHOUT SHIFT. IST AT BEDSIDE, PATIENT ENCOURAGED TO USE.
[2016-07-27 22:29] VITALS: BP 110/50
[2016-07-28 06:13] VITALS: BP 112/62
--- NOTE | 2016-07-28 08:04 | PN- Medicine Consult ---
Assessment/Plan Assessment/Plan Assessment: 61 YO f with a PMH of HTN, hyperlipidemia, DM, obesity, chronic pain, ulcerative colitis, IBS, osteoarthritis and spinal stenosis at L3, L4 and L4, L5 with spondylolisthesis who presents with bilateral lower back pain radiating to the anterior thigh with numbness 3 years. Consult was called by the orthopedic surgeon Dr. Shine Gomez, to comanage this patient for her medical comorbidities including diabetes, hypertension and hyperlipidemia etc. Assessment * Spinal stenosis status post lumbosacral laminectomy POD3 * Type 2 diabetes mellitus * Elevated WBC count post op-could be reactive * Hyperlipidemia * HTN * Crohns colitis, stable * Obesity Plan: * Last fingersticks 141, 201, 201. Continue NovoLog sliding scale. Resume Janumet on discharge. * Monitor sugars 3 times a day before meals and at bedtime * Continue enalapril, simvastatin and Asacol. Outpatient GI follow-up for Crohn 's. * Pain control per primary team * Obtain blood cultures for fever. * Bowel regimen as needed * Compazine/Zofran when necessary for nausea * Incentive Spirometry * Diabetic diet * DVT ppx-Alps * PT eval for early ambulation * DC planning per primary team Problem List: 1. Obesity 2. Hypertension 3. Non-insulin dependent type 2 diabetes mellitus 4. Spinal stenosis Subjective Subjective: Patient seen and examined. Off is no complaints. Denies any chest pain, shortness of breath, nausea, vomiting, palpitations, abdominal pain. Vitals are stable. Had a low-grade temp of 100 in a.m. Given Tylenol. Review of Systems Constitutional: Reports: no symptoms. EENTM: Reports: no symptoms. Cardiovascular: Reports: no symptoms. Respiratory: Reports: no symptoms. Gastrointestinal: Reports: no symptoms. Genitourinary: Reports: no symptoms. Musculoskeletal: Reports: back pain. Skin: Reports: no symptoms. Objective Last 24 Hrs of Vital Signs/I&O Vital Signs Date Time Temp Pulse Resp B/P B/P Pulse O2 O2 Flow FiO2 Mean Ox Delivery Rate 07/28 0613 100.0 80 20 112/62 95 07/27 2229 99.8 84 18 110/50 94 Room Air 07/27 1836 99.1 07/27 1813 99.1 07/27 1721 101.5 07/27 1656 101.4 07/27 1432 100.4 91 20 110/65 90 Room Air Intake & Output 07/28 1600 07/28 0800 07/28 0000 Intake Total Output Total 550 300 Balance -550 -300 Output, Urine 550 300 Physical Exam General Appearance: well developed/nourished, obese Head: atraumatic, normal appearance Ears, Nose, Throat: normal pharynx, normal ENT inspection Neck: normal inspection, supple Cardiovascular: regular rate/rhythm Respiratory: normal breath sounds Abdomen: normal bowel sounds, soft, non-tender Extremities: normal inspection, no edema Current Medications: Current Medications Sig/Sera Start time Last Medication Dose Route Stop Time Status Admin Acetaminophen 650 MG Q4P PRN 07/27 1730 AC 07/27 PO 1721 Atorvastatin Calcium 10 MG 1700 07/25 1700 AC 07/27 PO 1721 Bisacodyl 10 MG DAILY NEEDED PRN 07/25 1545 AC NM Docusate Sodium 100 MG TID 07/25 1600 AC 07/27 PO 2114 Insulin Aspart 0 AT BEDTIME 07/25 2200 AC SC Insulin Aspart 0 TIDAC 07/25 1700 AC 07/26 SC 1641 Lisinopril 20 MG DAILY 07/26 1000 AC 07/27 PO 0924 Magnesium Hydroxide 30 ML AT BEDTIME PRN 07/25 1600 AC PO Mesalamine 1,600 MG BID 07/25 2200 AC 07/27 PO 2114 Morphine Sulfate 2 MG Q2-3 HRS NEEDED.. 07/26 1100 AC IV Multivitamins 1 TAB DAILY 07/26 1000 AC 07/27 PO 0924 Ondansetron HCl 4 MG Q6P PRN 07/25 1545 AC 07/25 IV 1941 Oxycodone HCl 5 MG Q4-6 PRN PRN 07/26 1100 AC 07/28 PO 0531 Oxycodone HCl 10 MG Q4-6 PRN PRN 07/26 1100 AC 07/27 PO 0929 Oxycodone HCl 15 MG Q4-6 PRN PRN 07/26 1100 AC 07/27 PO 0329 Patient Medication 1 ED .STK-MED ONE 07/27 1214 [place] Teaching ED 07/27 1215 Trimethobenzamide HCl 200 MG Q6P PRN 07/25 1545 AC IM Results Last 24 Hrs Lab/Robin Results: Laboratory Tests 07/28/16 0712: Sodium Pending, Potassium Pending, Chloride Pending, Carbon Dioxide Pending, Anion Gap Pending, BUN Pending, Creatinine Pending, BUN/Creatinine Ratio Pending , CBC w Diff Pending, WBC Pending, RBC Pending, Hgb Pending, Hct Pending, MCV Pending, MCH Pending, RDW Pending, Plt Count Pending, MPV Pending, PUBS MCHC Pending
[2016-07-28 09:11] LABS: ABSOLUTE BASOPHIL COUNT 0 /CUMM (0.0-0.2); ABSOLUTE EOSINOPHIL COUNT 0 /CUMM (0.0-0.7); ABSOLUTE LYMPH COUNT 1.3 /CUMM (1.2-3.4); ABSOLUTE MONOCYTE COUNT 1.4 /CUMM (0.10-0.60); BASOPHIL % 0.1 % (0.0-2.0); EOSINOPHIL % 0.2 % (0-5); GRANULOCYTE % 79.9 % (42.2-75.2); HEMATOCRIT 29.5 % (37-47); MEAN CORPUSCULAR HGB CONC 32.2 G/DL (33.0-37.0); MEAN CORPUSCULAR VOLUME 80.8 FL (81.0-99.0); MEAN PLATELET VOLUME 8.9 FL (7.4-10.4); PLATELET COUNT 163 /CUMM (130-400); RBC DISTRIBUTION WIDTH 15.1 % (11.5-14.5); RED BLOOD CELL CT 3.65 /CUMM (4.20-5.40); WHITE BLOOD CELL COUNT 13.8 /CUMM (4.8-10.8)
[2016-07-28] MEDS ORDERED: ONE DAILY MULT1 EAC2 PO (10:19)
[2016-07-28] MEDS ORDERED: TYLENOL325 M1 PO (10:20)
[2016-07-28] MEDS ORDERED: MILK OF MA400 MG/52 PO (10:34)
[2016-07-28] MEDS ORDERED: JANUVIA100 M1 PO (10:34)
[2016-07-28] MEDS ORDERED: BISAC-EVAC10 M1 PR (10:34)
[2016-07-28] MEDS ORDERED: DOCUSATE SODIU100 M3 PO (10:34)
[2016-07-28 14:19] VITALS: BP 128/64
--- NOTE | 2016-07-28 14:40 | NUR ---
NURSING NOTE: PT STABLE FOR DISCHARGE PER MD. DR. MOSS AND MAGGIE CURRY AWARE OF TEMPS YESTERDAY AND LOW GRADE TEMP TODAY. PT TO BE DISCHARGED BACK TO [facility] VIA CHAIR CAR. DISCHARGE INSTRUCTIONS GIVEN WITH VERBAL UNDERSTANDING. PT SISTER PICKED UP PRECRIPTIONS FROM PHARMACY.
--- NOTE | 2016-07-28 16:39 | PN- Orthopedic ---
Subjective Subjective: Patient is doing well. No new complaints. No fever/ chills currently. No SOB, calf pain, urinary complaints. Ambulating without difficulty. Stable for discharge. Review of Systems: Remarkable for the above complaints. Objective Vital Signs and I&Os Vital Signs Date Time Temp Pulse Resp B/P B/P Pulse O2 O2 Flow FiO2 Mean Ox Delivery Rate 07/28 1419 99.3 79 20 128/64 95 Room Air 07/28 1011 98.2 07/28 0913 80 114/68 07/28 612 100.0 80 20 112/62 95 /07 2229 99.8 84 18 110/50 94 Room Air 07/27 1836 99.1 07/27 1813 99.1 07/27 1721 101.5 07/27 1656 101.4 Intake & Output 07/28 1600 07/28 0800 07/28 0000 07/27 1600 07/27 0800 07/27 0000 Intake Total 800 900 240 940 Output Total 500 550 300 700 400 800 Balance 300 -550 -300 200 -160 140 Intake, Oral 800 900 240 940 Number 1 Bowel Movements Output, Urine 500 550 300 700 400 800 Physical Exam General Appearance: well developed/nourished, no apparent distress, alert, awake Back: Incision C/D/I. No drainage. Neurologic/Psychiatric: Neurovascularly intact with no new or worsening gross motor or sensory loss. Assessment/Plan Assessment/Plan assessment: S/p PLDF L3-S1 with Instr./local bone Plan: D/C home. D/C IV Continue Percocet. Bowel regimen. Do's /Dont's explained. Disch. Instr. given. Will F/U as outpatient. Problem List: 1. Non-insulin dependent type 2 diabetes mellitus 2. Hypertension 3. Obesity 4. Hypercholesterolemia 5. Fusion of lumbar spine 6. Spinal stenosis Core Measures/Miscellaneous Venous Thromboembolism VTE Risk Factors: Age > 40, Surgery VTE Contraindications: No Contraindications VTE Diagnosis: No Beta Ana Is Beta Ana a Home Med? No Antibiotics Is Patient on Antibiotics? Yes If Yes: prophylaxis Attending MD Review Statement Attending Statement Attending MD Statement: examined this patient, discuss w/resident/PA/MAKEUP INSTRUCTOR, agreed w/resident/PA/MAKEUP INSTRUCTOR
== END 2016-07-28 15:04 | DRG 460 ==
LOC: SDA 02:29 → ENRESERV 16:55 → ENTRNSPT 18:05 → CMPTRNSPT 18:34 → 2NB 18:48 → ENPENDDIS 07-28 10:19 → 2NB 07-28 15:04
PROVIDERS: Nurse Practitioner; Orthopaedic Surgery Orthopaedic Surgery of the Spine; ADMIT Orthopaedic Surgery Orthopaedic Surgery of the Spine
PROC: 0SG307J Fusion of Lumbosacral Joint with Autologous Tissue Substitute, Posterior Approach, Anterior Column, Open Approach (ICD-10-PCS; principal; 2016-07-25)
PROC: 01NB0ZZ Release Lumbar Nerve, Open Approach (ICD-10-PCS; principal; 2016-07-25)
DX: M48.07 Spinal stenosis, lumbosacral region (principal); Z68.43 Body mass index [BMI] 50.0-59.9, adult; I10 Essential (primary) hypertension; E11.9 Type 2 diabetes mellitus without complications; Z79.84 Long term (current) use of oral hypoglycemic drugs; E78.5 Hyperlipidemia, unspecified; K58.9 Irritable bowel syndrome, unspecified; E66.9 Obesity, unspecified; M43.17 Spondylolisthesis, lumbosacral region
CPT/HCPCS: 36415; 72020; 72100; 82436; 87086; 93005; 93010; 97110-GO; 97116-GO; 97161-GP; 97530-GO; C1713; J0131; J1100; J1644; J2405; J3250; J3490; J7120

== ENCOUNTER 2017-02-24 02:54 | Inpatient (IN) | payer OTHER ==
--- NOTE | 2017-02-08 15:19 | History & Physical Pre-Op ---
Mary Esteban 02/08/17 1512: General Information and HPI MD Statement: I have seen and personally examined EMILE WILSON and documented this H&P. The patient is a 61 year old F who presented with a patient stated chief complaint of right sided low back pain which she describes as "darting", with intermittent bilateral anterior thigh pain. Source of Information: patient, old records Exam Limitations: no limitations History of Present Illness: Emile is a 61-year-old female who is status post posterior lumbar decompression fusion L3-S1 with instrumentation and local bone on July 25, 2016. Emile states that approximately 3 months ago, she has had intensified low back pain, predominantly on the right side with intermittent pain in bilateral anterior thighs and into her knees. She describes the pain as "darting". She states it is worse with activity and inhibits her from getting in and out of the tub and bending over without significant discomfort. She is now resorting to using her cane for ambulation which she was not needing postoperatively. She has continued with physical therapy which has been minimally effective. She does use Atasol for pain as needed. Her x-rays suggest the possibility of a non -union. Due to the fact that Emile is having progressively worsening symptoms and has failed to respond to conservative measures, she wants nothing more to do with nonsurgical treatment. She has been scheduled for a revision posterior lumbar decompression and fusion L3-S1 with removal of hardware and possible reinstrumentation with the use of local versus iliac crest bone grafting on 2017. Allergies/Medications Allergies: Coded Allergies: Penicillins (Intermediate, hives 01/13/16) chlorhexidine (From HIBICLENS) (RASH 07/22/16) Home Med list Enalapril Maleate 20 MG TABLET 1 TAB PO DAILY BP (Reported) Mesalamine (Asacol Hd) 800 MG TABLET.DR 400 MG PO BID COLITIS (Reported) Multivitamin (One Daily Multivitamin) 1 EACH TABLET 1 TAB PO DAILY GENERAL HEALTH Sitagliptin Phosphate (Januvia) 100 MG TABLET 100 MG PO DAILY DIABETES Compliance With Home Meds: GOOD Past History Medical History Neurological: NONE EENT: NONE Cardiovascular: hypertension, hyperlipidemia Respiratory: NONE Gastrointestinal: colitis, irritable bowel syndrome, ulcerative colitis Hepatic: NONE Renal: NONE Musculoskeletal: chronic back pain, disk herniation, degen joint disease, osteoarthritis (right hip and bilateral knees), sciatica, spinal stenosis Psychiatric: chronic pain disorder Endocrine: diabetes, obesity Blood Disorders: NONE Cancer(s): NONE HEELER MACHINE/Reproductive: NONE History of MRSA: No History of VRE: No History of CDIFF: No Isolation History: Standard Surgical History Pertinent Surgical History: spinal fusion (s/p PLDF L3-S1 with Instr./loc), s/p colonoscopy x 2 Past Family/Social History Family History Relations & Conditions if any FATHER (ASCVDMI). MOTHER (IDDM). Psychosocial History Where Do You Live? Home Primary Language: Divehi Smoking Status: Never Smoked ETOH Use: denies use Illicit Drug Use: denies illicit drug use Other Social History: with 1 son Functional Ability ADLs Independent: dressing, eating, toileting, bathing. Ambulation: independent IADLs Independent: shopping, housework, finances, food prep, telephone, transportation , medication admin. 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 Exam & Diagnostic Data Last 24 Hrs of Vital Signs/I&O Height: 5'2" Weight: 260lbs. Physical Exam General Appearance Alert, Oriented X3, Cooperative, Mild Distress Skin No Rashes, No Breakdown, No Significant Lesion HEENT Atraumatic, PERRLA, Mucous Membr. moist/pink Neck Supple, No JVD, No thryomegaly, +2 Carotid Pulse wo Bruit Lymphatic Cervical nl Cardiovascular Regular Rate, Normal S1, Normal S2, No Murmurs Lungs Clear to Auscultation, Normal Air Movement Abdomen Normal Bowel Sounds, Soft, No Tenderness, No Masses Neurological Normal Gait, Normal Speech, Strength at 5/5 X4 Ext, Normal Tone, Sensation Intact, Reflexes 2+ Extremities No Clubbing, No Cyanosis, Normal Pulses, LEFT KNEE TENDER TO TOUCH. MILD EDEMA Vascular Normal Pulses Assessment/Plan Assessment/Plan: Assessment: Pseudoarthrosis/Painful Hardware L3-S1 Fusion from 07/25/16. Plan: Emile is scheduled for a revision posterior lumbar decompression and fusion L3-S1 with removal of hardware and possible re-instrumentation using local versus iliac crest bone grafting on 02/24/2017. We discussed the procedure in full detail as well as the pre-and postoperative course, follow-up care, and anticipated recovery. We discussed the postoperative do's and don'ts and discharge instructions. We discussed the benefits, alternatives, and risks, not to exclude, , paralysis, infection, bleeding, continued pain, failure of the surgery, need for future surgery, DVT, vascular injury, CSF leak, etc., and given these risks, she still wishes to proceed. She is scheduled to follow-up with her primary care physician for preoperative clearance. Any changes in this patient's plan is based on this patient's outpatient clinical presentation. As Ranked By This Provider Problem List: 1. Non-insulin dependent type 2 diabetes mellitus 2. Hypertension 3. Obesity 4. Hypercholesterolemia 5. Fusion of lumbar spine 6. Spinal stenosis Copies To: Jason ACEVEDO,Shine Attending MD Review Statement Attending Statement Attending MD Statement: examined this patient, discuss w/resident/PA/ARMHOLE SEWER, agreed w/resident/PA/ARMHOLE SEWER, reviewed images
[~2017-02-24] VITALS: Ht 157.5 cm; Wt 123.4 kg
[~2017-02-24 02:54] MED LIST changes: +ASACOL HD800 M1 PO; +BISAC-EVAC10 M1 PR; +COLACE100 M1 PO; +DOCUSATE SODIU100 M3 PO; +DULCOLAX10 M1 RC; +JANUVIA100 M1 PO; +MILK OF MA400 MG/52 PO; +ONE DAILY MULT1 EAC2 PO; +OS-CAL 500+D31 EAC1 PO; +PERCOCET 5-3251 EACH PO; +TYLENOL EXTRA500 M2 PO; +TYLENOL325 M1 PO; +VITAMIN D31000 UNI2 PO
--- NOTE | 2017-02-24 15:07 | Operative Report ---
Operative/Inv Procedure Report Surgery Date: 02/24/17 Name of Procedure: Lumbosacral inspection of fusion mass removal of segmental pedicle screw hardware L3 to S1 bilaterally. We instrumented L4-S1 with pedicle screws. Laminectomies L4 5 and L5-S1. Interdiscal cage implant placement following discectomy at L5-S1. Lateral intertransverse process bone fusion L3 - S1. Use of fluoroscopy. Neuro lysis left L5 nerve root. Pre-Operative Diagnosis: Nonunion L3 - S1 fusion, loose hardware. Radiculopathy with foraminal stenosis. 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 Anesthesia: general endotracheal tube Monitors: Neuro Operative/Procedure Note Note: After adequate general anesthesia was achieved the patient was placed in the prone position with all bony prominences padded. The back was sterilely prepped and draped. The previous incision was entered sharply and extended slightly superiorly and distally. The dissection was carried bilaterally over the dorsal elements. Hardware was easily identified and inspection of fusion was performed and multiple screws were loose. There was significant bursa tissue over the distal end of the right kelli and both S1 pedicle screws. There was slight looseness at L3, gross looseness at S1, and moderate looseness of L4 and L5. The screws were all easily removed. Laminectomies were performed at L4 5 and L5 -S1 on the left side. There was severe lateral foraminal stenosis from degenerative tissue and disc material compressing the left L5 nerve and a neuro lysis was performed under loupe magnification to free up the compressed nerve which was markedly erythematous. Following the discectomy at L5-S1, the endplates were debrided and the cage implant instruments were used to prepare the disc space for cage placement. A 10 mm trial identified the appropriate size cage. The cage was selected and packed with morselized local cancellus and cortical cancellus bone. The bone was harvested from the sacrum and the lateral masses as well as nonunion bone. The cage was tamped into position and found to be very stable. 8.5mm millimeters screws were placed at L4 bilaterally as well as on the right side at L5. 9-1/2 mm screws were placed on the left side at L5- S1 bilaterally in the sacrum. Compression was applied across the left L5-S1 pedicle screws to secure the cage. The facets were decorticated as well as the lateral masses from L4 laterally and local bone graft was packed laterally from L3 to S1 for intertransverse process fusion. The wound was copiously irrigated. The screws were tested with neuro monitoring and found to be appropriate. Rods were contoured and locked into position after which compression was applied on the left side. Wound was again copiously irrigated. Gelfoam was laid over the laminotomy sites and a closure of the lumbodorsal fashion subcutaneous tissue was performed with absorbable suture and the skin was closed with reji. Covered with sterile dressings the patient was log rolled on to the stretcher stable.
--- NOTE | 2017-02-24 15:42 | RADIOLOGY REPORT ---
EXAMINATION: XR LUMBOSACRAL SPINE CLINICAL INFORMATION: 61-year-old female requiring fluoroscopic imaging in operating room for inspection, hardware removal and laminectomy L3-S1. COMPARISON: 07/26/2016 TECHNIQUE: Intraoperative fluoroscopic imaging of the lumbosacral spine was utilized. Number of saved images: 2 images are submitted into the electronic picture archive. Fluoroscopy time: 0.3 minutes. Dose: 0.246 mGym2 FINDINGS: Please refer to the operative report. Findings include anterolisthesis at L3-L4 and L4-L5, placement of intervertebral fusion device at L5-S1, and well positioned transpedicular screws and posterior fusion rods at L4-S1. IMPRESSION: Fluoroscopic imaging of lumbosacral spine was required within the operating room. Please refer to the operative report.
[2017-02-24] MEDS ORDERED: COLACE100 M1 PO (16:23)
[2017-02-24] MEDS ORDERED: DULCOLAX10 M1 RC (16:23)
[2017-02-24] MEDS ORDERED: TYLENOL EXTRA500 M2 PO (16:23)
[2017-02-24] MEDS ORDERED: MILK OF MA400 MG/52 PO (16:23)
[2017-02-24] MEDS ORDERED: VITAMIN D31000 UNI2 PO (16:23)
[2017-02-24] MEDS ORDERED: PERCOCET 5-3251 EACH PO (16:23)
[2017-02-24] MEDS ORDERED: OS-CAL 500+D31 EAC1 PO (16:23)
--- NOTE | 2017-02-24 17:14 | Cons- Medical ---
Carlos Melo 02/24/17 1713: General Information and HPI Consulting Request Date of Consult: 02/24/17 Requested By: Shine Gomez MD Reason for Consult: POST-OP Source of Information: patient, family, old records History of Present Illness: Ms. Baptiste is a 61-year-old female with a history of hypertension, hyperlipidemia, qrd-tyiucqo-sqphnfsyi diabetes mellitus, osteoarthritis, irritable bowel syndrome [ulcerative colitis] who is status post posterior lumbar decompression fusion L3-S1 with instrumentation and local bone on July 25, 2016. She is S/P (((Lumbosacral inspection of fusion mass removal of segmental pedicle screw hardware L3 to S1 bilaterally. We instrumentation L4-5 and 6 bilateral pedicle screws. Laminectomies L3 4, L4 5, L5-S1. Interdiscal cage implant placement following discectomy L5-S1. Lateral intertransverse process bone fusion L3 S1. Use of fluoroscopy. Neuro lysis left L5 nerve root on 2017)))). The reason for the current surgery is to control her back pain as she reported no significant improvement with the nonsurgical management, also she report worsening back pain with difficulties ambulation and that is what made her to pursue with surgical intervention. P.t report 1 bloody bowel movement prior to OR, also she stated that she had 2 flare up in the 2017 one in Mar and one in Oct that was treated, she report anemia that is due to UC. in the OR charts she lost around 600 cc of blood. On January 2016 patient wants plan to get lumbar decompression but due to projectile diarrhea which contaminated not only the patient but the sterile field. It was also noted that the patient had incontinence of urine prior to the placement of the Bravo catheter the operation was canceled and leather tooler consulted and colonoscopy was done for the patient and she was diagnosed with ulcerative colitis. Allergies/Medications Allergies: Coded Allergies: Penicillins (Intermediate, hives 01/13/16) chlorhexidine (From HIBICLENS) (RASH 07/22/16) Home Med List: Acetaminophen (Tylenol Extra Strength) 500 MG TABLET 1 TAB PO TID PRN TEMP>101 Bisacodyl (Dulcolax) 10 MG SUPP.RECT 1 SUP RC DAILY PRN CONSTIPATION Calcium Carbonate/Vitamin D3 (Os-Harvey 500+D3 Caplet) 500 MG-200 TABLET 1 TAB PO BID BONE HEALTH Cholecalciferol (Vitamin D3) 1,000 UNIT TABLET 1 TAB PO DAILY BONE HEALTH Docusate Sodium (Colace) 100 MG CAPSULE 1 CAP PO BID PRN CONSTIPATION Enalapril Maleate 20 MG TABLET 1 TAB PO DAILY BP (Reported) Magnesium Hydroxide (Milk Of Magnesia) 400 MG/5 ML ORAL.SUSP 5 ML PO Q8P PRN CONSTIPATION Mesalamine (Asacol Hd) 800 MG TABLET.DR 400 MG PO BID COLITIS (Reported) Multivitamin (One Daily Multivitamin) 1 EACH TABLET 1 TAB PO DAILY GENERAL HEALTH Sitagliptin Phosphate (Januvia) 100 MG TABLET 100 MG PO DAILY DIABETES Current Medications: Current Medications Sig/Sera Start time Last Medication Dose Route Stop Time Status Admin Acetaminophen 650 MG Q4P PRN 02/24 1600 UNVr PO Bisacodyl 10 MG DAILY NEEDED PRN 02/24 1600 UNVr SC Calcium 600 MG BID 02/24 2200 UNVr PO Cholecalciferol 1,000 IU DAILY 02/25 1000 UNVr PO Clindamycin 600 MG IQ8 02/25 0000 UNVr Dextrose/Water 50 ML IV 02/25 1629 Clindamycin 600 MG ONCE 02/24 0000 NR IV 02/24 2359 Docusate Sodium 100 MG TID 02/24 1600 UNVr PO Insulin Aspart 0 TIDAC 02/24 1700 UNVr SC Lactated Ringer's 1,000 ML Q10H 02/24 1615 UNVr IV Lisinopril 20 MG DAILY 02/25 1000 UNVr PO Magnesium Hydroxide 30 ML Q8P PRN 02/24 1615 UNVr PO Morphine Sulfate 1 MG Q3P PRN 02/24 1600 UNVr IV Multivitamins 1 TAB DAILY 02/25 1000 UNVr Therapeutic PO Ondansetron HCl 4 MG Q6P PRN 02/24 1600 UNVr IV Oxycodone/ 1 TAB Q4P PRN 02/24 1600 UNVr Acetaminophen PO Oxycodone/ 2 TAB Q4P PRN 02/24 1600 UNVr Acetaminophen PO Sitagliptin Phosphate 100 MG DAILY 02/25 1000 UNVr PO Trimethobenzamide HCl 200 MG Q6P PRN 02/24 1600 UNVr IM Review of Systems Review of Systems Constitutional: Denies: chills, fever, weakness. Cardiovascular: Denies: chest pain, palpitations, peripheral edema. Respiratory: Denies: cough, short of breath, wheezing. GI: Reports: bloody stool. Denies: abdominal pain, diarrhea, nausea, vomiting. Genitourinary: Denies: pain. Musculoskeletal: Reports: back pain. Past History Travel History Traveled to [place] past 21 day No Medical History Neurological: NONE EENT: NONE Cardiovascular: hypertension, hyperlipidemia Respiratory: NONE Gastrointestinal: colitis, irritable bowel syndrome, ulcerative colitis Hepatic: NONE Renal: NONE Musculoskeletal: chronic back pain, disk herniation, degen joint disease, osteoarthritis (right hip and bilateral knees), sciatica, spinal stenosis Psychiatric: chronic pain disorder Endocrine: diabetes, obesity Blood Disorders: NONE Cancer(s): NONE [place]/Reproductive: NONE Surgical History Surgical History: spinal fusion (s/p PLDF L3-S1 with Instr./loc), s/p colonoscopy x 2 Family History Relations & Conditions If Any: FATHER (ASCVDMI at ages 40s). MOTHER (IDDM). Psychosocial History Primary Language: Bulgarian Smoking Status: Unknown If Ever Smoked Functional Ability ADLs Independent: dressing, eating, toileting, bathing. IADLs Independent: shopping, housework, finances, food prep, telephone, transportation , medication admin. Exam & Diagnostic Data Last 24 Hrs of Vital Signs/I&O Vital Signs Date Time Temp Pulse Resp B/P B/P Pulse O2 O2 Flow FiO2 Mean Ox Delivery Rate 02/24 1852 96 Nasal 3.0L Cannula Physical Exam General Appearance: alert, awake, comfortable, obese Head: atraumatic Neck: normal inspection, supple Respiratory: normal breath sounds, chest non-tender, no respiratory distress, lungs clear Cardiovascular: regular rate/rhythm Gastrointestinal: normal bowel sounds, soft, non-tender Extremities: trace left lower extremity edema Last 24 Hrs of Labs/Robin: Laboratory Tests 02/24/17 1800: CBC w Diff NO MAN DIFF REQ, RBC 3.44 L, MCV 81.2, MCH 26.5 L, RDW 16.0 H, MPV 8.7, Gran % 83.7 H, Lymphocytes % 7.6 L, Monocytes % 8.5, Eosinophils % 0.1, Basophils % 0.1, Absolute Granulocytes 11.8 H, Absolute Lymphocytes 1.1 L, Absolute Monocytes 1.2 H, Absolute Eosinophils 0, Absolute Basophils 0, PUBS MCHC 32.7 L Diagnostic Data Other Results EXAMINATION: XR LUMBOSACRAL SPINE CLINICAL INFORMATION: 61-year-old female requiring fluoroscopic imaging in operating room for inspection, hardware removal and laminectomy L3-S1. COMPARISON: 07/26/2016 TECHNIQUE: Intraoperative fluoroscopic imaging of the lumbosacral spine was utilized. Number of saved images: 2 images are submitted into the electronic picture archive. Fluoroscopy time: 0.3 minutes. Dose: 0.246 mGym2 FINDINGS: Please refer to the operative report. Findings include anterolisthesis at L3-L4 and L4-L5, placement of intervertebral fusion device at L5-S1, and well positioned transpedicular screws and posterior fusion rods at L4-S1. IMPRESSION: Fluoroscopic imaging of lumbosacral spine was required within the operating room. Please refer to the operative report. Assessment/Plan Assessment/Plan Ms. Baptiste is a 61-year-old female with a history of hypertension, hyperlipidemia, qfy-datfuzl-eomevbvoc diabetes mellitus, osteoarthritis, irritable bowel syndrome [ulcerative colitis] She is S/P Lumbosacral inspection of fusion mass removal of segmental pedicle screw hardware L3 to S1 bilaterally. We instrumentation L4-5 and 6 bilateral pedicle screws. Laminectomies L3 4, L4 5, L5-S1. Interdiscal cage implant placement following discectomy L5-S1. Lateral intertransverse process bone fusion L3 S1. Use of fluoroscopy. Neuro lysis left L5 nerve root. Most recent hemoglobin A1c = 6.2% Problem list: -Status post lumbar spine surgery. -Leukocytosis-most likely secondary to postop -Acute on Chronic anemia-that could be due to iron deficiency secondary to UC and the acute blood loss. -History of hypertension, hyperlipidemia -History of diabetes mellitus -History of ulcerative colitis Recommendation: -Please hold the patient oral antidiabetic medication -Please start the patient on NovoLog sliding scale, Accu-checks. -As soon as patient can tolerate oral intake please DC IV fluid -Please obtain EKG and chest x-ray in a.m. -If her blood pressure elevated please restart her home medication tonight -Please obtain CBC, basic electrolyte and check in a.m. -Please check iron study to assess the need for iron supplement. -Physical therapy and ambulation as soon as possible -Adjust the patient pain Meds with Tylenol for mild pain, or Percocet for moderate and 2 mg of morphine every 4 as needed for severe pain. -DVT prophylaxis all time Consult Acknowledgment - Thank you for your consult request. Irma Floyd 02/24/172046: Assessment/Plan Consult Acknowledgment - Thank you for your consult request. Attending MD Review Statement Attending Statement Attending MD Statement: examined this patient, discuss w/resident/PA/GRAPE PICKER, agreed w/resident/PA/GRAPE PICKER, reviewed EMR data (avail), reviewed images, amended to note Attending Assessment/Plan: CC: Consult for medical management 61-year-old female, resident of [facility], with past medical history significant for HTN, HLD, DM, osteoarthritis, ulcerative colitis, chronic anemia was admitted for L3-S1 removal of hardware, L3-4, L4-5, L5-S1 laminectomies, fusion. Patient had 5 over long surgery, without any significant hypotension, last approximately 600 mL of blood. Patient is currently asymptomatic and comfortably lying on bed. Just prior to surgery patient had an episode of diarrhea with bloody bowel movement, but has not been having similar symptoms since last few days. Her last flare of ulcerative colitis was in October and before that in March, compliant with his Asacol. Complete physical examination unremarkable, labs show mild drop in H&H as compared to labs done on January 2017, probably secondary to surgery versus GI blood loss. Patient is tolerating by mouth intake. Suggest to continue sliding scale insulin while in hospital, hold oral hypoglycemics, resume all her antihypertensives, watch H&H in a.m., transfusion goal 7 if required. Appreciate consult we will follow along.
[2017-02-24 18:07] VITALS: BP 119/64
[2017-02-24 18:48] LABS: ABSOLUTE BASOPHIL COUNT 0 /CUMM (0.0-0.2); ABSOLUTE EOSINOPHIL COUNT 0 /CUMM (0.0-0.7); ABSOLUTE GRANULOCYTE CT 11.8 /CUMM (1.4-6.5); ABSOLUTE LYMPH COUNT 1.1 /CUMM (1.2-3.4); ABSOLUTE MONOCYTE COUNT 1.2 /CUMM (0.10-0.60); BASOPHIL % 0.1 % (0.0-2.0); EOSINOPHIL % 0.1 % (0-5); HEMATOCRIT 27.9 % (37-47); MEAN CORPUSCULAR HGB 26.5 PG (27.0-31.0); MEAN CORPUSCULAR HGB CONC 32.7 G/DL (33.0-37.0); MEAN CORPUSCULAR VOLUME 81.2 FL (81.0-99.0); MEAN PLATELET VOLUME 8.7 FL (7.4-10.4); PLATELET COUNT 205 /CUMM (130-400); RED BLOOD CELL CT 3.44 /CUMM (4.20-5.40); WHITE BLOOD CELL COUNT 14.1 /CUMM (4.8-10.8)
[2017-02-24 18:49] LABS: GRANULOCYTE % 83.7 % (42.2-75.2)
--- NOTE | 2017-02-24 19:53 | PN- Neurosurgical ---
Subjective Subjective: Pt seen and evaluated for post-op check s/p L3-S1 removal of hardware, L3-4, L4- 5, L5-S1 laminectomies, fusion. Patient doing well on current pain meds and remains HD stable. She has been oob and void appropriatly. Only complains for mild lower back pain at this time. Otherwise, lying comfortably in bed in NAD. Denies CP, SOB, N/V/D, numbness in lower extremitys. No further questions or concerns at this time. Objective Vital Signs and I&Os Vital Signs Date Time Temp Pulse Resp B/P B/P Pulse O2 O2 Flow FiO2 Mean Ox Delivery Rate 02/24 1852 96 Nasal 3.0L Cannula Intake & Output 02/24 0802/24 0000 02/23 1600 02/23 0802/23 0000 Intake Total Output Total Balance Patient 274 lb Weight Physical Exam: General: obese female laying supine in bed, answer questions without difficulty, NAD Cardiac: RRR, s1s2 Pulm: CTA in anterior/lateral hernandez abdomen: soft, nt/nd, bs+ Neuro: AAOx3, cn 2-12 intact, 5/5 muscle strength in b/l lower extremity in all muscle groups, sensation intact globally in b/l le Current Medications: Current Medications Sig/Sera Start time Last Medication Dose Route Stop Time Status Admin Acetaminophen 650 MG Q4P PRN 02/24 1600 AC PO Acetaminophen 1,000 MG .STK-MED ONE 02/24 1115 DC IV 02/24 1116 Bisacodyl 10 MG DAILY NEEDED PRN 02/24 1600 AC DE Calcium 600 MG BID 02/24 2200 AC PO Cholecalciferol 1,000 IU DAILY 02/25 1000 AC PO Clindamycin 600 MG IQ8 02/25 0000 AC Dextrose/Water 50 ML IV 02/25 1629 Clindamycin 600 MG ONCE 02/24 0000 NR IV 02/24 2359 Docusate Sodium 100 MG TID 02/24 1600 AC PO Fentanyl Citrate 250 MCG .STK-MED ONE 02/24 1114 DC IM 02/24 1115 Insulin Aspart 0 TIDAC 02/24 1700 AC SC Lactated Ringer's 1,000 ML Q10H 02/24 1615 AC 02/24 IV 1909 Lisinopril 20 MG DAILY 02/25 1000 AC PO Magnesium Hydroxide 30 ML Q8P PRN 02/24 1615 AC PO Midazolam HCl 2 MG .STK-MED ONE 02/24 1115 DC IM 02/24 1116 Morphine Sulfate 1 MG Q3P PRN 02/24 1600 AC IV Multivitamins 1 TAB DAILY 02/25 1000 AC Therapeutic PO Ondansetron HCl 4 MG Q6P PRN 02/24 1600 AC IV Oxycodone/ 1 TAB Q4P PRN 02/24 1600 AC Acetaminophen PO Oxycodone/ 2 TAB Q4P PRN 02/24 1600 AC Acetaminophen PO Remifentanil 3 MG .STK-MED ONE 02/24 1116 DC IV 02/24 1117 Sitagliptin Phosphate 100 MG DAILY 02/25 1000 CAN PO Trimethobenzamide HCl 200 MG Q6P PRN 02/24 1600 AC IM Results Last 48 Hours of Labs: Laboratory Tests 02/24 1800 Hematology CBC w Diff NO MAN DIFF REQ WBC (4.8 - 10.8 /CUMM) 14.1 H RBC (4.20 - 5.40 /CUMM) 3.44 L Hgb (12.0 - 16.0 G/DL) 9.1 L Hct (37 - 47 %) 27.9 L MCV (81.0 - 99.0 FL) 81.2 MCH (27.0 - 31.0 PG) 26.5 L RDW (11.5 - 14.5 %) 16.0 H Plt Count (130 - 400 /CUMM) 205 MPV (7.4 - 10.4 FL) 8.7 Gran % (42.2 - 75.2 %) 83.7 H Lymphocytes % (20.5 - 51.1 %) 7.6 L Monocytes % (1.7 - 9.3 %) 8.5 Eosinophils % (0 - 5 %) 0.1 Basophils % (0.0 - 2.0 %) 0.1 Absolute Granulocytes (1.4 - 6.5 /CUMM) 11.8 H Absolute Lymphocytes (1.2 - 3.4 /CUMM) 1.1 L Absolute Monocytes (0.10 - 0.60 /CUMM) 1.2 H Absolute Eosinophils (0.0 - 0.7 /CUMM) 0 Absolute Basophils (0.0 - 0.2 /CUMM) 0 PUBS MCHC (33.0 - 37.0 G/DL) 32.7 L Assessment/Plan Assessment/Plan This is a 61 y/o F w/ PMHx of HTN, DM, and chronic back pain s/p posterior lumbar decompression fusion L3-S1 with instrumentation and local bone on July 25, 2016 who is now POD#0 L3-S1 removal of hardware, L3-4, L4-5, L5-S1 laminectomies , fusion. She remains HD stable and pain controlled. -continue current pain meds -continue post-op abx -Continue home cardiac meds -novalog Sliding scale, cbgs -zofran/tigan prn n/v -monitor i+os -DM diet -labs ordered for tomorrow A.m. -PT Core Measures Venous Thromboembolism VTE Risk Factors Surgery No Mechanical VTE Prophylaxis d/t N/A MechProphylax Ordered No VTE Pharm Prophylaxis d/t Surgical Contraindication
[2017-02-24 22:23] VITALS: BP 118/70
[2017-02-25 06:35] VITALS: BP 96/60
[2017-02-25 08:29] LABS: ABSOLUTE BASOPHIL COUNT 0 /CUMM (0.0-0.2); ABSOLUTE EOSINOPHIL COUNT 0 /CUMM (0.0-0.7); ABSOLUTE GRANULOCYTE CT 10.4 /CUMM (1.4-6.5); ABSOLUTE MONOCYTE COUNT 1.1 /CUMM (0.10-0.60); BASOPHIL % 0 % (0.0-2.0); EOSINOPHIL % 0 % (0-5); GRANULOCYTE % 83.5 % (42.2-75.2); HEMATOCRIT 26.6 % (37-47); MEAN CORPUSCULAR HGB 26.3 PG (27.0-31.0); MEAN CORPUSCULAR HGB CONC 32.4 G/DL (33.0-37.0); MEAN CORPUSCULAR VOLUME 81.2 FL (81.0-99.0); MEAN PLATELET VOLUME 8.5 FL (7.4-10.4); PLATELET COUNT 239 /CUMM (130-400); RBC DISTRIBUTION WIDTH 16.2 % (11.5-14.5); RED BLOOD CELL CT 3.27 /CUMM (4.20-5.40); WHITE BLOOD CELL COUNT 12.5 /CUMM (4.8-10.8)
--- NOTE | 2017-02-25 11:58 | PN- Att Addend ---
Attending Addendum Attending Brief Note S: The patient noted a small amount of blood in BM- requesting her Asacol to be restarted. Otherwise feeling well. O: VS: Vital Signs Date Time Temp Pulse Resp B/P B/P Pulse O2 O2 Flow FiO2 Mean Ox Delivery Rate 02/25 1407 98.6 83 18 120/64 97 Nasal 1.0L Cannula Intake & Output 02/25 1600 Intake Total 1270 Output Total 200 Balance 1070 Intake, IV 820 Intake, Oral 450 Output, Urine 200 Current Medications Sig/Sera Start time Last Medication Dose Route Stop Time Status Admin Acetaminophen 650 MG Q4P PRN 02/24 1600 AC PO Bisacodyl 10 MG DAILY NEEDED PRN 02/24 1600 AC LA Calcium 600 MG BID 02/24 2200 AC 02/25 PO 0834 Cholecalciferol 1,000 IU DAILY 02/25 1000 AC 02/25 PO 0834 Clindamycin 600 MG IQ8 02/25 0000 DC 02/25 Dextrose/Water 50 ML IV 02/25 1629 1617 Clindamycin 600 MG ONCE 02/24 0000 DC IV 02/24 2359 Docusate Sodium 100 MG TID 02/24 1600 AC 02/25 PO 1617 Insulin Aspart 0 TIDAC 02/24 1700 AC 02/25 SC 1715 Lactated Ringer's 1,000 ML Q10H 02/24 1615 DC 02/25 IV 1234 Lisinopril 20 MG DAILY 02/25 1000 AC 02/25 PO 0834 Magnesium Hydroxide 30 ML Q8P PRN 02/24 1615 AC PO Mesalamine 400 MG BID 02/25 1159 AC 02/25 PO 1431 Morphine Sulfate 1 MG Q3P PRN 02/24 1600 AC IV Multivitamins 1 TAB DAILY 02/25 1000 AC 02/25 Therapeutic PO 0834 Ondansetron HCl 4 MG Q6P PRN 02/24 1600 AC IV Oxycodone/ 1 TAB Q4P PRN 02/24 1600 AC Acetaminophen PO Oxycodone/ 2 TAB Q4P PRN 02/24 1600 AC 02/25 Acetaminophen PO 1714 Trimethobenzamide HCl 200 MG Q6P PRN 02/24 1600 AC IM Labs: Laboratory Tests 02/25/17 0730: Anion Gap 10, Estimated GFR > 60, BUN/Creatinine Ratio 14.3, CBC w Diff MAN DIFF ORDERED, RBC 3.27 L, MCV 81.2, MCH 26.3 L, RDW 16.2 H, MPV 8.5, Gran % 83.5 H, Lymphocytes % 7.8 L, Monocytes % 8.7, Eosinophils % 0, Basophils % 0, Absolute Granulocytes 10.4 H, Absolute Lymphocytes 1.0 L, Absolute Monocytes 1.1 H, Absolute Eosinophils 0, Absolute Basophils 0, Platelet Estimate VERIFIED BY SMEAR, Polychromasia 1+, Poikilocytosis 1+, Anisocytosis 1+, Ovalocytes 1+, PUBS MCHC 32.4 L 02/24/17 1800: CBC w Diff NO MAN DIFF REQ, RBC 3.44 L, MCV 81.2, MCH 26.5 L, RDW 16.0 H, MPV 8.7, Gran % 83.7 H, Lymphocytes % 7.6 L, Monocytes % 8.5, Eosinophils % 0.1, Basophils % 0.1, Absolute Granulocytes 11.8 H, Absolute Lymphocytes 1.1 L, Absolute Monocytes 1.2 H, Absolute Eosinophils 0, Absolute Basophils 0, PUBS MCHC 32.7 L Impression/Plan: #S/P Lumbar Surgery- doing well. Plan: As per surgery. #Acute Blood Loss Anemia- ? due to surgery and some blood loss via GI (h/o ulcerative colitis). Plan: Continue to follow H/H in morning. #Ulcerative Colitis- patient requesting Asacol to be restarted. Plan: Restart Asacol bid (will verify with surgery if OK). #DM2- blood sugars stable. Plan: Will continue to follow on insulin and resume oral agents upon discharge.
[2017-02-25 14:07] VITALS: BP 120/64
--- NOTE | 2017-02-25 15:26 | PN- Orthopedic ---
Subjective Subjective: Patient c/o expected postop incisional pain. No preop pain. No leg pain. James. po. Ambulating with PT. No N/V. No fever/chills. Review of Systems: Remarkable for the above complaints. Objective Vital Signs and I&Os Vital Signs Date Time Temp Pulse Resp B/P B/P Pulse O2 O2 Flow FiO2 Mean Ox Delivery Rate 02/25 1407 98.6 83 18 120/64 97 Nasal 1.0L Cannula 02/25 1054 Room Air 02/25 0834 100/68 02/25 0800 98 Nasal 2.0L Cannula 02/25 0635 98.6 76 20 96/60 99 Nasal Cannula 02/25 0000 97 Nasal 2.0L Cannula 02/24 2223 97.5 68 20 118/70 97 02/24 1852 96 Nasal 3.0L Cannula 02/24 1807 98.1 74 18 119/64 96 Nasal 2.0L Cannula Intake & Output 02/25 1600 02/25 0800 02/25 0000 02/24 1600 02/24 0800 02/24 0000 Intake Total 1270 900 880 Output Total 047 971 9724 Balance 1070 600 -320 Intake, IV 820 800 400 Intake, Oral 450 100 480 Number 0 Bowel Movements Output, Urine 974 327 6543 Patient 272 lb Weight Physical Exam General Appearance: well developed/nourished, no apparent distress, alert, awake Respiratory: normal breath sounds, no respiratory distress Cardiovascular: regular rate/rhythm Abdomen: normal bowel sounds, soft, non-tender Back: Incision C/D/I. Dressing changed. Extremities: Neurovascularly intact with no new or worsening gross motor or sensory loss. Skin: intact, normal color, warm/dry Assessment/Plan Assessment/Plan Assessment: s/p PLDF L4-S1 with Instr./L3-S1 with local bone Plan: Ambulate with PT Continue Percocet Ice to knee and incision prn Possible D/C in am tomorrow Recheck CBC in am Problem List: 1. Hypertension 2. Non-insulin dependent type 2 diabetes mellitus 3. Obesity 4. Hypercholesterolemia 5. Fusion of lumbar spine 6. 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
[2017-02-25 22:20] VITALS: BP 122/60
[2017-02-26 02:00] VITALS: BP 118/66
[2017-02-26 06:33] VITALS: BP 100/52
--- NOTE | 2017-02-26 07:07 | Surgical Discharge Summary ---
Visit Information Visit Dates Admission Date: 02/24/17 Discharge Date: 02/26/2017 History of Present Illness Chief Complaint: Back Pain. Nonunion L3 S1 fusion loose hardware. Radiculopathy with foraminal stenosis. 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 MOTHER (IDDM). Psychosocial History Where Do You Live? Home Who Do You Live With? Patient/Self What is Your Primary Language? Kazakh Review of Systems: See H&P Hospital Course Course Attending Physician: Jason ACEVEDO,Shine Primary Care Physician: Unknown Hospital Course: Patient is a 61-year-old female who is status post posterior lumbar decompression fusion L3-S1 with instrumentation and local bone on July 25, 2016. She had recurring symptoms and was unable to ambulate independently. Her x-rays suggest the possibility of a non-union. Due to the fact that Emile is having progressively worsening symptoms and has failed to respond to conservative measures, she wants nothing more to do with nonsurgical treatment. On 02/24/2017, patient underwent intraoperative intervention which included: Lumbosacral inspection of fusion mass removal of segmental pedicle screw hardware L3 to S1 bilaterally. We instrumentation L45 and 6 bilateral pedicle screws. Laminectomies L3 4, L4 5, L5-S1. Interdiscal cage implant placement following discectomy L5-S1. Lateral intertransverse process bone fusion L3 S1. Use of fluoroscopy. Neuro lysis left L5 nerve root. She tolerated the procedure well, ambulated with physical therapy, tolerated a regular diet, and was subsequently cleared for discharge. Discharge order was placed on 02/26/2017 per Mary SERRANO instructions Complications: None Allergies: Coded Allergies: Penicillins (Intermediate, hives 01/13/16) chlorhexidine (From HIBICLENS) (RASH 07/22/16) Significant Procedures: 02/24/2017 patient underwent: Lumbosacral inspection of fusion mass removal of segmental pedicle screw hardware L3 to S1 bilaterally. We instrumentation L45 and 6 bilateral pedicle screws. Laminectomies L3 4, L4 5, L5-S1. Interdiscal cage implant placement following discectomy L5-S1. Lateral intertransverse process bone fusion L3 S1. Use of fluoroscopy. Neuro lysis left L5 nerve root. Disposition Summary Disposition Principal Diagnosis: Nonunion L3 S1 fusion loose hardware. Radiculopathy with foraminal stenosis. Additional Diagnosis: Nonunion L3 4 [id number] disc herniation and lateral foraminal stenosis left L5-S1 Discharge Disposition: home or self care Discharge Instructions General Discharge Information Code Status: Full Code Patient's Diet: Regular Patient's Activity: See attached instructions from Dr. Gomez Follow-Up Instructions/Appts: See attached instructions from Dr. Gomez Medications at Discharge Discharge Medications: Continue taking these medications: Enalapril Maleate (Enalapril Maleate) 20 MG TABLET 1 Tablet ORAL DAILY Comments: Last Taken: 07/28/16 Time: 9:15 AM Sitagliptin Phosphate (Januvia) 100 MG TABLET 100 Milligram ORAL DAILY Qty = 30 Comments: NOT GIVEN IN HOSPTIAL Multivitamin (One Daily Multivitamin) 1 EACH TABLET 1 Tablet ORAL DAILY Qty = 30 Comments: Last Taken: 07/28/16 Time: 9:15 AM Mesalamine (Asacol Hd) 800 MG TABLET. 400 Milligram ORAL TWICE DAILY Start taking the following new medications: Acetaminophen (Tylenol Extra Strength) 500 MG TABLET 1 Tablet ORAL THREE TIMES DAILY as needed for TEMP>101 Qty = 90 No Refills Bisacodyl (Dulcolax) 10 MG SUPP.RECT 1 Suppository RECTAL DAILY as needed for CONSTIPATION Qty = 10 No Refills Calcium Carbonate/Vitamin D3 (Os-Harvey 500+D3 Caplet) 500 MG-200 TABLET 1 Tablet ORAL TWICE DAILY Qty = 60 No Refills Cholecalciferol (Vitamin D3) 1,000 UNIT TABLET 1 Tablet ORAL DAILY Qty = 30 No Refills Docusate Sodium (Colace) 100 MG CAPSULE 1 Capsule ORAL TWICE DAILY as needed for CONSTIPATION Qty = 60 No Refills Magnesium Hydroxide (Milk Of Magnesia) 400 MG/5 ML ORAL.SUSP 5 Milliliters ORAL EVERY 8 HOURS NEEDED as needed for CONSTIPATION Qty = 300 No Refills Oxycodone HCl/Acetaminophen (Percocet 5-325 MG Tablet) 5 MG-325 MG TABLET 1-2 Tablet ORAL EVERY 4-6 HOURS as needed for PAIN Qty = 90 No Refills
[2017-02-26 09:19] VITALS: BP 108/60
[2017-02-26 09:32] LABS: ABSOLUTE BASOPHIL COUNT 0 /CUMM (0.0-0.2); ABSOLUTE EOSINOPHIL COUNT 0 /CUMM (0.0-0.7); ABSOLUTE GRANULOCYTE CT 8.6 /CUMM (1.4-6.5); ABSOLUTE LYMPH COUNT 1.7 /CUMM (1.2-3.4); ABSOLUTE MONOCYTE COUNT 1.4 /CUMM (0.10-0.60); BASOPHIL % 0.3 % (0.0-2.0); EOSINOPHIL % 0.2 % (0-5); GRANULOCYTE % 73.5 % (42.2-75.2); HEMATOCRIT 24.4 % (37-47); MEAN CORPUSCULAR HGB 26.5 PG (27.0-31.0); MEAN CORPUSCULAR HGB CONC 32.7 G/DL (33.0-37.0); MEAN CORPUSCULAR VOLUME 81.1 FL (81.0-99.0); MEAN PLATELET VOLUME 8.5 FL (7.4-10.4); PLATELET COUNT 217 /CUMM (130-400); RBC DISTRIBUTION WIDTH 16.2 % (11.5-14.5); RED BLOOD CELL CT 3.01 /CUMM (4.20-5.40); WHITE BLOOD CELL COUNT 11.8 /CUMM (4.8-10.8)
--- NOTE | 2017-02-26 19:28 | PN- Att Addend ---
Attending Addendum Attending Brief Note The patient was discharged prior to my seeing today. Appeared stable. H/H continues to drop. Noted that Asacol was restarted on discharge by surgery. Will need to follow closely as OP. Oral hypoglycemic also restarted.
== END 2017-02-26 15:52 | DRG 454 ==
LOC: SDA 02:54 → ENRESERV 16:16 → 2NA 17:51 → ENPENDDIS 02-26 12:37 → 2NA 02-26 15:52
PROVIDERS: Orthopaedic Surgery Orthopaedic Surgery of the Spine
PROC: 0SP304Z Removal of Internal Fixation Device from Lumbosacral Joint, Open Approach (ICD-10-PCS; principal; 2017-02-24)
PROC: 0SG30AJ Fusion of Lumbosacral Joint with Interbody Fusion Device, Posterior Approach, Anterior Column, Open Approach (ICD-10-PCS; 2017-02-24)
PROC: 0SG3071 Fusion of Lumbosacral Joint with Autologous Tissue Substitute, Posterior Approach, Posterior Column, Open Approach (ICD-10-PCS; 2017-02-24)
PROC: 0SG0071 Fusion of Lumbar Vertebral Joint with Autologous Tissue Substitute, Posterior Approach, Posterior Column, Open Approach (ICD-10-PCS; 2017-02-24)
PROC: 0SP004Z Removal of Internal Fixation Device from Lumbar Vertebral Joint, Open Approach (ICD-10-PCS; 2017-02-24)
PROC: 01NB0ZZ Release Lumbar Nerve, Open Approach (ICD-10-PCS; 2017-02-24)
PROC: 0SB40ZZ Excision of Lumbosacral Disc, Open Approach (ICD-10-PCS; 2017-02-24)
PROC: 4A11X4G Monitoring of Peripheral Nervous Electrical Activity, Intraoperative, External Approach (ICD-10-PCS; 2017-02-24)
DX: T84.226A Displacement of internal fixation device of vertebrae, initial encounter (principal); M96.0 Pseudarthrosis after fusion or arthrodesis; Z68.42 Body mass index [BMI] 45.0-49.9, adult; E78.5 Hyperlipidemia, unspecified; I10 Essential (primary) hypertension; M48.061 Spinal stenosis, lumbar region without neurogenic claudication; Y83.8 Other surgical procedures as the cause of abnormal reaction of the patient, or of later complication, without mention of misadventure at the time of the procedure; M48.07 Spinal stenosis, lumbosacral region; K58.9 Irritable bowel syndrome, unspecified; M16.11 Unilateral primary osteoarthritis, right hip; M17.0 Bilateral primary osteoarthritis of knee; G89.29 Other chronic pain; E11.9 Type 2 diabetes mellitus without complications; E66.9 Obesity, unspecified; M51.17 Intervertebral disc disorders with radiculopathy, lumbosacral region
CPT/HCPCS: 2NAP; 36415; 72100; 82436; 93005; 93010; 97116-GO; 97161-GP; 97530-GO; C1713; C9399; J0131; J1100; J1644; J2405; J2765; J3250; J3490; J7120